=== PATIENT | female | born 1935 | race Caucasian/White ===

== ENCOUNTER → 2016-08-18 | Outpatient (CLI) | payer MEDICARE ==
--- NOTE | 2016-08-18 11:19 | MM ---
Reason for exam: clinical finding. Last mammogram was performed 11 months ago. History: Patient is postmenopausal. Family history of breast cancer in 2 maternal aunts. Taking unspecified hormones for 15 years beginning at age 56. Indicated problem(s): pain in both breasts. Physical Findings: Nurse did not find any significant physical abnormalities on exam. MG 3D Diag Mammo W/Cad DORINA Bilateral CC and MLO view(s) were taken. Prior study comparison: September 08, 2015, bilateral MG screening mammo w CAD. March 22, 2013, bilateral digital screening mammo w/CAD. February 09, 2012, bilateral digital screening mammo w/CAD. There are scattered fibroglandular densities. No significant new findings when compared with previous films. These results were verbally communicated with the patient and result sheet given to the patient on 08/18/16. ASSESSMENT: Benign, BI-RAD 2 RECOMMENDATION: Routine screening mammogram of both breasts in 1 year.
== END | disposition home or self-care (01) ==
LOC: RADMAMWWP 09:56
PROVIDERS: ATTEND Obstetrics & Gynecology
DX: N64.4 Mastodynia (principal)
CPT/HCPCS: G0204; G0279

== ENCOUNTER → 2017-08-03 | Outpatient (CLI) | payer MEDICARE ==
--- NOTE | 2017-08-03 16:21 | XR ---
EXAMINATION TYPE: XR Hip RT and AP Pelvis DATE OF EXAM: 08/03/2017 COMPARISON: NONE HISTORY: Right hip pain TECHNIQUE: A single AP view of the pelvis is obtained. Two views of the right hip are obtained. FINDINGS: There is no acute fracture/dislocation evident in the pelvis. The hip and sacroiliac join ts appear symmetric and unremarkable. The overlying soft tissue appears unremarkable. Two views of right hip show no acute fracture or dislocation. There is marked arthropathy change, sub chondral geode formation, joint space loss, marginal spurring, subchondral sclerosis and flattening o f the femoral head. Arthropathy changes are less pronounced in the left hip. Difficult to exclude fem oral acetabular impingement on the left. IMPRESSION: There is no acute fracture or dislocation in the pelvis or right hip. Osteoarthritis, th ere may have been prior osteochondral fracture, osteonecrosis with secondary osteoarthritis. Addition al findings above.
== END | disposition home or self-care (01) ==
LOC: RADXRMAIN 13:50
PROVIDERS: ATTEND Physician Assistant
DX: M16.11 Unilateral primary osteoarthritis, right hip (principal)
CPT/HCPCS: 73502

== ENCOUNTER → 2017-08-26 | Outpatient (CLI) | payer MEDICARE ==
[2017-08-26 14:23] LABS: Basophils # (A) 0.1 k/uL (0-0.2); Basophils % (A) 1 %; Eosinophils # (A) 0.3 k/uL (0-0.7); Eosinophils % (A) 3 %; HCT 37.1 % (34.0-46.0); HGB 12.4 gm/dL (11.4-16.0); Lymphocytes # (A) 1.7 k/uL (1.0-4.8); Lymphocytes % (A) 17 %; MCH 29.6 pg (25.0-35.0); MCHC 33.4 g/dL (31.0-37.0); MCV 88.8 fL (80.0-100.0); Mean Platelet Volume 7.1; Monocytes # (A) 0.4 k/uL (0-1.0); Monocytes % (A) 5 %; Neutrophils % (A) 72 %; Platelet Count 348 k/uL (150-450); RBC 4.18 m/uL (3.80-5.40); RDW 13.1 % (11.5-15.5); WBC 9.6 k/uL (3.8-10.6)
[2017-08-26 14:25] LABS: Appearance,Urine Clear (Clear); Bilirubin,Urine Negative (Negative); Blood,Urine Negative (Negative); Color,Urine Yellow; Glucose,Urine (UA) Negative (Negative); Ketones,Urine Negative (Negative); Leukocyte Esterase,Urine Small (Negative); Mucus,Urine Few /hpf; Nitrite,Urine Negative (Negative); Protein,Urine Negative (Negative); Squamous Epithelial Cell,Urine 3 /hpf (0-4); Urobilinogen,Urine <2.0 mg/dL (<2.0); WBC,Urine 3 /hpf (0-5)
[2017-08-26 14:30] LABS: Partial Thromboplastin Time 22.6 sec (22.0-30.0); Prothrombin Time 9.9 sec (9.0-12.0)
[2017-08-26 14:49] LABS: Potassium 4.7 mmol/L (3.5-5.1)
== END | disposition home or self-care (01) ==
LOC: LABPAT 13:40
PROVIDERS: ATTEND Orthopaedic Surgery
DX: Z01.812 Encounter for preprocedural laboratory examination (principal); M16.11 Unilateral primary osteoarthritis, right hip; Z79.01 Long term (current) use of anticoagulants
CPT/HCPCS: 36415; 80051; 81001; 82565; 84520; 85025; 85610; 85730; 87070

== ENCOUNTER 2017-09-05 08:04 | Inpatient (IN) | payer MEDICARE ==
[2017-08-25 13:18] VITALS: BMI 23.2
--- NOTE | 2017-09-04 12:52 | HP ---
HISTORY AND PHYSICAL Surgery is scheduled for 09/05/2017. Sabrina Santizo is an 82-year-old patient seen with symptomatic right hip osteoarthritis. After having treatment options discussed, she elected to proceed with direct anterior right total hip arthroplasty. Consent regarding the procedure was obtained. Medical clearance was provided by Dr. Rajinder Travis. PAST MEDICAL HISTORY: Hypothyroidism, hypertension. PAST SURGICAL HISTORY: Right knee arthroscopy, right total knee arthroplasty, tonsillectomy. DAILY MEDICATIONS: Synthroid, , aspirin, Aleve. ALLERGIES: None reported. SOCIAL HISTORY: Patient denies tobacco use. PHYSICAL EVALUATION OF THE RIGHT HIP: There is diffuse tenderness. Limited range of motion with severe pain. Positive impingement sign. Right lower extremity is 1 inch shorter than the left. Straight leg raise is negative. Distal neurovascular exam is intact. RADIOGRAPHS: Radiographs of the right hip revealed severe osteoarthritis. IMPRESSION: 1. Right hip osteoarthritis. 2. Hypertension. 3. Hypothyroidism. PLAN: Direct anterior right total hip arthroplasty. MMODL / IJN: [id number] /
[~2017-09-05 08:04] MED LIST: ACETAMINOPHEN TAB 500 MG TAB PO ONE; DEXAMETHASONE SOD PHOSPHATE 10 MG/ML 1 ML VIAL IV ONE; MELOXICAM 7.5 MG TAB PO ONE; MIDAZOLAM 2 MG/2 ML VIAL IV PRN; ONDANSETRON 4 MG/2 ML VIAL IVP ONE; TRANEXAMIC ACID 1,000 MG in SODIUM CHLORIDE 0.9% 50 ML IVPB ONE; ceFAZolin IN SWFI 2 GM/20 ML SYRINGE IVP ONE; fentaNYL (PF) 50 MCG/ML 2 ML AMP IV PRN
[2017-09-05] MEDS ORDERED: LIDOCAINE 1% INJ 10MG/ML (20 ML MDV) ONE ×2 (09:07→10:00)
[2017-09-05] MEDS: LACTATED RINGERS 1,000 ML IV SCH (09:21)
[2017-09-05 09:30] VITALS: RESP 16
[2017-09-05] MEDS ORDERED: ROPIVACAINE 246.25 MG, EPINEPHrine 0.5 MG, KETOROLAC 30 MG, cloNIDine HCL/PF 80 MCG, WA... MISCELLANE ONE ×5 (09:39)
[2017-09-05] MEDS ORDERED: SODIUM CHLORIDE 0.9% 100 ML BAG ONE (10:00)
[2017-09-05] MEDS ORDERED: PROPOFOL 10 MG/ML 20 ML VIAL IV ONE (10:00)
[2017-09-05] MEDS ORDERED: TRANEXAMIC ACID 1,000 MG/10 ML VIAL ONE (10:00)
[2017-09-05] MEDS ORDERED: MIDAZOLAM 2 MG/2 ML VIAL ONE (10:00)
[2017-09-05] MEDS ORDERED: fentaNYL (PF) 50 MCG/ML 2 ML AMP ONE (10:00)
[2017-09-05] MEDS ORDERED: LACTATED RINGERS 1,000 ML IV ONE (11:41)
--- NOTE | 2017-09-05 11:47 | P.OP ---
Date of Procedure: 09/05/17 Preoperative Diagnosis: Right hip osteoarthritis Postoperative Diagnosis: Right hip osteoarthritis Procedure(s) Performed: Direct anterior right total hip arthroplasty Implants: 1. Depuy Corail press-fit femoral stem KA size 11 standard collar 2. Depuy Anna 56 mm press-fit acetabular shell 3. Depuy pinnacle polyethylene acetabular liner neutral 36 mm ID 56 mm OD 4. Biolox delta ceramic femoral head +5 36 mm Anesthesia: regional (Regional block), local, spinal Surgeon: Jovan Bangura [employer] Flight Attendant #1: Jayy Best Estimated Blood Loss (ml): 200 Pathology: other (Femoral head) Condition: stable Disposition: PACU Indications for Procedure: 82-year-old patient seen with symptomatic right hip osteoarthritis. After treatment options were discussed, she elected to proceed with total hip arthroplasty. Operative Findings: see description of procedure Description of Procedure: The patient was taken to the operative suite after having a regional block performed by the department of anesthesia. Patient underwent a spinal anesthetic by the department of anesthesia. Patient was then transferred to the [employer] table. Patient was given preoperative IV antibiotics and TXA. Both lower extremities were placed in standard leg spars. The hip was then prepped and draped in the normal sterile orthopedic fashion. A standard anterior incision was made beginning 3 cm lateral and 1 cm distal to the ASIS extending 10 cm. Dissection was then carried down through the subcutaneous soft tissues down to the fascia overlying the tensor fascia dale. An incision was now made through the fascia. Careful dissection was taken down exposing the tensor fascia dale muscle. A Cobra retractor was now placed along the medial femoral neck and a second one along the lateral femoral neck. The venous circumflex vessels were now identified, cauterized and clipped. We identified the anterior hip capsule. An incision was made through the hip capsule along the lateral border. Tag sutures were then placed along the anterior capsule and lateral capsule. We then performed a capsulotomy. Retractors were now placed around the femoral neck itself. A Cobra retractor was now placed along the anterior acetabulum. Good exposure was now noted of the femoral head/neck complex. Residual labrum was debrided out. We placed the extremity into 3 turns of fine traction. We were then able to introduce a skid in between the femoral head and acetabulum. A placed a awl into the femoral head. We took 2 turns of traction off the extremity. Rotation was now released. The femoral head was then dislocated without difficulty. Additional releasing was performed of the capsule. The head was then reduced. All traction was released. A femoral neck cut was now made with a sagittal saw. It was completed with an osteotome at the lateral neck area. The femoral head was now removed without difficulty. It was advanced arthritis of both the femoral head and acetabulum. The acetabulum appeared very shallow. The extremity was now rotated to 60 of external rotation. It was locked in position. Residual labrum was now debrided out. Serial reaming was performed of the acetabulum. Once we reached the appropriate size and a trial was position and fit nicely. The trial components were removed. The wound was irrigated with pulse lavage mechanical irrigation. The appropriate size was now chosen opened and made available. It was introduced into the acetabulum without difficulty. The C-arm /fluoroscopy was now brought into the operative field. We made sure we had a true AP pelvic view. We now under direct C-arm/fluoroscopy introduced into the acetabular component with appropriate version and inclination. It was well seated and stable. The C-arm was pulled back. An appropriate liner was introduced and clicked into position. It was felt to be stable. At this point retractors were removed. The extremity was now placed into 120 external rotation with no traction. The leg was now dropped to the ground and adducted. Appropriate retractors were now positioned along the proximal femur. We also placed our femoral look into position. Additional capsular releasing was performed to gain access to the proximal femur. We now used a box osteotome. A canal finder was now utilized. Serial broaching was now performed until we reached the appropriate size with good overall rotational stability. Appropriate calcar planing was performed. A trial head/neck was placed into position. The hip was now reduced. The C-arm/fluoroscopy was brought back into the operative field. A spot film was obtained of the nonoperative hip. A spot film was obtained of the trial components. Overlays were performed, we noted good overall alignment and positioning for determining leg length. The C- arm/fluoroscopy was pulled back. Retractors were repositioned and the hip was dislocated. The leg was again taken down to the ground and adducted. Appropriate retractors were repositioned as well as the femoral hook. All trial components were removed. The deep soft tissues were infiltrated with local analgesic. The wound was irrigated with pulse lavage mechanical irrigation. The femoral implant was opened along with the femoral head. The femoral implant was introduced with good purchase and fixation noted. The femoral head was introduced with good positioning and fixation noted. Retractors were now removed. The hip was now reduced. There appeared be good positioning of the hip. This was confirmed under fluoroscopy and spot films were obtained to document that. Bipolar cautery had been utilized intermittently through the procedure for hemostasis. The superficial soft tissues were infiltrated with local analgesic. The wound was irrigated copiously with pulse lavage mechanical irrigation. The fascia was repaired with Vicryl suture. The subcutaneous soft tissues were repaired in layers with Vicryl suture. The skin was approximated with pernio/Dermabond. A second gram of TXA was given. Sterile dressings were applied. Patient was then awakened, transferred to a bed and taken to recovery in stable condition. Domingo CLAYTON assisted with the procedure.
[2017-09-05] MEDS ORDERED: MORPHINE SULFATE 4MG/4ML SYRG IVP PRN ×3 (11:48)
[2017-09-05] MEDS ORDERED: NALOXONE 0.4 MG/ML 1 ML VIAL IV PRN (11:48)
[2017-09-05] MEDS ORDERED: ONDANSETRON 4 MG/2 ML VIAL IVP PRN (11:48)
[2017-09-05] MEDS ORDERED: HYDROcodone/APAP 5-325MG 1 EACH TAB PO PRN (11:48)
--- NOTE | 2017-09-05 11:50 | P.ONQ ---
Anesthesiology Proc Note - PNB - Peripheral Nerve Block Performed Right Fascia Iliaca Single Time Out Performed: Yes Procedure Start Time: :10 Procedure Stop Time: : Indication: Acute Post-Operative Pain, Requested by physician Sedation Type: Sedate with meaningful contact maintained Preparation: Sterile Prep Position: Supine Needle Size: 50mm (2") Needle Gauge: 21 Technique: Ultrasound Injectate: 0.5% Ropivacaine (see comment for volume) (marcaine .25% 40cc) Blood Aspirated: No Pain Paresthesia on Injection Noted: No Resistance on Injection: Normal Events: Uneventful and Well Tolerated
--- NOTE | 2017-09-05 11:53 | XR ---
EXAMINATION TYPE: XR Hip Limited RT DATE OF EXAM: 09/05/2017 COMPARISON: NONE HISTORY: Postop TECHNIQUE: One view submitted. FINDINGS: There is a prosthetic hip in near anatomic alignment. There is soft tissue edema and emphysema. IMPRESSION: 1. Postoperative change. Appears in near-anatomic alignment.
--- NOTE | 2017-09-05 11:54 | FL ---
EXAMINATION TYPE: FL guidance operating room DATE OF EXAM: 09/05/2017 HISTORY: Flouroscopy time 27 seconds of fluoroscopy provided. IMPRESSION: 1. Fluoroscopy time.
[2017-09-05] MEDS: traMADol 50 MG TAB PO SCH ×3 (16:41→21:41)
[2017-09-05] MEDS: ceFAZolin IN SWFI 2 GM/20 ML SYRINGE IVP SCH (16:51)
[2017-09-05] MEDS: SODIUM CHLORIDE 0.9% 1,000 ML IV SCH (16:52)
[2017-09-05] MEDS ORDERED: ARTIFICIAL TEARS-HYPROMELLOSE DROPS 15 ML BTL BOTH EYES PRN (19:18)
--- NOTE | 2017-09-05 19:31 | P.CONS ---
History of Present Illness - Reason for Consult Preoperative consultation management. - History of Present Illness 82-year-old female with no significant medical problems is admitted for hip arthroplasty sepsis and underwent surgery denied any fever, chills, nausea, vomiting patient doesn't have any Caceres catheter at this time patient is feeling well. No pain in the right hip area Review of Systems REVIEW OF SYSTEMS: CONSTITUTIONAL: No fever, no malaise, no fatigue. HEENT: No recent visual problems or hearing problems. Denied any sore throat. CARDIOVASCULAR: No chest pain, orthopnea, PND, no palpitations, no syncope. PULMONARY: No shortness of breath, no cough, no hemoptysis. GASTROINTESTINAL: No diarrhea, no nausea, no vomiting, no abdominal pain. Normoactive bowel sounds. NEUROLOGICAL: No headaches, no weakness, no numbness. HEMATOLOGICAL: Denies any bleeding or petechiae. GENITOURINARY: Denies any burning micturition, frequency, or urgency. MUSCULOSKELETAL/RHEUMATOLOGICAL: Denies any joint pain, swelling, or any muscle pain. ENDOCRINE: Denies any polyuria or polydipsia. The rest of the 14-point review of systems is negative. 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 Past Anesthesia/Blood Transfusion Reactions: Previous Problems w/ Anesthesia, Family History of Problems w/ Anesthesia Additional Past Anesthesia/Blood Transfusion Reaction / Comm: "i did not go to sleep right away with cataract procedure", brother was awake during a surgery Past Psychological History: No Psychological Hx Reported Smoking Status: Former smoker Past Alcohol Use History: None Reported Additional Past Alcohol Use History / Comment(s): quit smoking ,smoked approx 8 yrs,<1ppd Past Drug Use History: None Reported - Past Family History Mother Family Medical History: No Reported History Medications and Allergies Home Medications Medication Instructions Recorded Confirmed Type Aspirin 81 mg PO HS 12/11/13 09/05/17 History Naproxen Sodium [Aleve] 220 - 440 mg PO BID PRN 08/25/17 09/05/17 History Vit C/E/Zn/Coppr/Lutein/Zeaxan 1 cap PO DAILY 08/25/17 09/05/17 History [Preservision Areds 2 Softgel] Levothyroxine Sodium [Synthroid] 100 mcg PO DAILY 09/05/17 09/05/17 History Allergies Allergy/AdvReac Type Severity Reaction Status Date / Time Sulfa (Sulfonamide Allergy Rash/Hives Verified 09/05/17 16:53 Antibiotics) Physical Exam Vitals: Vital Signs Temp Pulse Resp BP Pulse Ox 09/05/17 15:00 76 16 116/58 95 09/05/17 14:45 79 16 118/59 97 09/05/17 14:30 77 16 118/56 96 09/05/17 14:15 81 16 131/60 97 09/05/17 14:00 76 16 128/63 95 09/05/17 13:45 74 16 131/63 98 09/05/17 13:30 78 16 128/65 95 09/05/17 13:15 83 16 113/75 94 L 09/05/17 13:00 98.1 F 91 16 134/63 94 L 09/05/17 12:45 67 16 122/61 98 09/05/17 12:30 66 16 129/66 98 09/05/17 12:15 68 16 137/67 98 09/05/17 12:08 98 F 67 16 103/60 98 09/05/17 09:30 67 16 128/62 100 09/05/17 09:00 97.7 F 75 16 127/64 98 Intake and Output 09/05/17 09/05/17 09/05/17 06:59 14:59 22:59 Intake Total 1400 Output Total 200 200 Balance 1200 -200 Intake: IV 1400 Sodium Chloride 0.9% 1, 300 000 ml @ 50 mls/hr IV . Q20H [facility] Rx#:[id number] Output: Urine 200 Estimated Blood Loss 200 PHYSICAL EXAMINATION: GENERAL: The patient is alert and oriented x3, not in any acute distress. Well developed, well nourished. HEENT: Pupils are round and equally reacting to light. EOMI. No scleral icterus. No conjunctival pallor. Normocephalic, atraumatic. No pharyngeal erythema. No thyromegaly. CARDIOVASCULAR: S1 and S2 present. No murmurs, rubs, or gallops. PULMONARY: Chest is clear to auscultation, no wheezing or crackles. ABDOMEN: Soft, nontender, nondistended, normoactive bowel sounds. No palpable organomegaly. MUSCULOSKELETAL: Deferred to orthopedic surgery EXTREMITIES: No cyanosis, clubbing, or pedal edema. NEUROLOGICAL: Gross neurological examination did not reveal any focal deficits. SKIN: No rashes. Assessment and Plan Plan: Left hip arthroplasty postoperative day 0: Due to prophylaxis pain management as per primary service. Try to avoid opiates benzodiazepines barbiturates to avoid delirium. -Hypothyroidism continue with levothyroxine
[2017-09-05] MEDS: FAMOTIDINE 20 MG TAB PO SCH (21:41)
[2017-09-05] MEDS: ASPIRIN 81 MG PO SCH (21:41)
[2017-09-05] MEDS: SENNOSIDES-DOCUSATE SODIUM 1 EACH TAB PO SCH (21:42)
[2017-09-05] MEDS: HYDROcodone/APAP 5-325MG 1 EACH TAB PO PRN (23:25)
[2017-09-06] MEDS: ceFAZolin IN SWFI 2 GM/20 ML SYRINGE IVP SCH (03:28)
[2017-09-06] MEDS ORDERED: HYDROmorphone 2 MG TAB PO PRN ×3 (03:57→03:58)
[2017-09-06] MEDS: LEVOTHYROXINE 100 MCG TAB PO SCH (05:42)
[2017-09-06] MEDS: LACTATED RINGERS 1,000 ML IV SCH (05:55)
[2017-09-06] MEDS: traMADol 50 MG TAB PO SCH ×4 (07:58→21:06)
[2017-09-06] MEDS: ENOXAPARIN 40 MG/0.4 ML SYRINGE SQ SCH (07:59)
[2017-09-06] MEDS: FAMOTIDINE 20 MG TAB PO SCH ×2 (07:59→21:06)
[2017-09-06] MEDS: MELOXICAM 7.5 MG TAB PO SCH (07:59)
[2017-09-06 08:02] LABS: Basophils % (A) 0 %; Eosinophils # (A) 0.1 k/uL (0-0.7); Eosinophils % (A) 1 %; HCT 26.2 % (34.0-46.0); Lymphocytes # (A) 1.7 k/uL (1.0-4.8); Lymphocytes % (A) 25 %; MCH 29.4 pg (25.0-35.0); MCHC 32.7 g/dL (31.0-37.0); MCV 90.1 fL (80.0-100.0); Mean Platelet Volume 7.6; Monocytes # (A) 0.5 k/uL (0-1.0); Monocytes % (A) 8 %; Neutrophils # (A) 4.6 k/uL (1.3-7.7); Neutrophils % (A) 66 %; Platelet Count 217 k/uL (150-450); RDW 13.7 % (11.5-15.5); WBC 7.1 k/uL (3.8-10.6)
[2017-09-06 08:03] LABS: HGB 8.5 gm/dL (11.4-16.0)
[2017-09-06] MEDS: HYDROcodone/APAP 5-325MG 1 EACH TAB PO PRN ×2 (08:57→23:35)
[2017-09-06] MEDS ORDERED: FAMOTIDINE 20 MG TAB PO SCH (09:00)
--- NOTE | 2017-09-06 10:57 | P.PN ---
Subjective Progress Note Date: 09/06/17 Principal diagnosis: s/p right layo Patient is seen today resting in her hospital chair, she appears comfortable. She is ambulating well with physical therapy. She has urinated on her own. She denies any headaches, lightheadedness, chest pain or shortness of breath. Objective - Vital Signs Vital signs: Vital Signs Temp 98.8 F 09/06/17 07:00 Pulse 76 09/06/17 07:00 Resp 16 09/06/17 07:00 BP 107/64 09/06/17 07:00 Pulse Ox 97 09/06/17 07:00 Intake & Output 09/05/17 09/06/17 09/06/17 18:59 06:59 18:59 Intake Total 1400 1025 180 Output Total 400 Balance 1000 1025 180 Intake: IV 1400 175 Sodium Chloride 0.9% 1, 300 175 000 ml @ 50 mls/hr IV . Q20H [facility] Rx#:[id number] Intake, IV Titration 350 Amount Sodium Chloride 0.9% 1, 350 000 ml @ 50 mls/hr IV . Q20H [facility] Rx#:[id number] Oral 500 180 Output: Urine 200 Estimated Blood Loss 200 Other: Voiding Method Toilet # Voids 1 - Exam Right lower extremity: Incision is clean, dry, and intact. The prineo tape is in good condition. There is minimal soft tissue swelling and ecchymosis surrounding the medial and lateral aspects of the incision. Calf is soft, no tenderness with palpation. Plantar flexion, dorsiflexion, EHL, FHL are intact. Sensory exam to light touch throughout the extremity is intact, dorsal pedis pulses 2+. - Labs CBC & Chem 7: 09/06/17 06:57 Labs: Abnormal Lab Results - Last 24 Hours (Table) 09/06/17 Range/Units 06:57 RBC 2.90 L (3.80-5.40) m/uL Hgb 8.5 L D (11.4-16.0) gm/dL Hct 26.2 L (34.0-46.0) % Assessment and Plan Plan: Assessment: 1. Post op day #1 s/p right layo Plan: 1. Pain control, continue use of low-dose medication 2. Continue work with physical therapy 3. Daily dressing changes/ice and elevate 4. GI and DVT prophylaxis, continue subcu medication 5. Medical recommendations 6. Will check CBC tomorrow morning, no worsening of hemoglobin she'll be discharged home today Time with Patient: Less than 30
[2017-09-06] MEDS: SODIUM CHLORIDE 0.9% 1,000 ML IV SCH (14:23)
[2017-09-06] MEDS: SENNOSIDES-DOCUSATE SODIUM 1 EACH TAB PO SCH (21:06)
[2017-09-06] MEDS: ASPIRIN 81 MG PO SCH (21:06)
[2017-09-07] MEDS: LEVOTHYROXINE 100 MCG TAB PO SCH (05:32)
[2017-09-07] MEDS: SODIUM CHLORIDE 0.9% 1,000 ML IV SCH (05:34)
[2017-09-07] MEDS: LACTATED RINGERS 1,000 ML IV SCH (05:35)
[2017-09-07] MEDS: ENOXAPARIN 40 MG/0.4 ML SYRINGE SQ SCH (07:21)
[2017-09-07] MEDS: MELOXICAM 7.5 MG TAB PO SCH (07:21)
[2017-09-07] MEDS: FAMOTIDINE 20 MG TAB PO SCH (07:21)
[2017-09-07] MEDS: traMADol 50 MG TAB PO SCH ×2 (07:22→12:51)
[2017-09-07 08:55] LABS: HCT 27.7 % (34.0-46.0); MCHC 32.3 g/dL (31.0-37.0); MCV 89.9 fL (80.0-100.0); Mean Platelet Volume 7.8; Platelet Count 219 k/uL (150-450); RBC 3.08 m/uL (3.80-5.40); RDW 13.9 % (11.5-15.5); WBC 8.2 k/uL (3.8-10.6)
--- NOTE | 2017-09-07 11:16 | P.PN ---
Subjective Progress Note Date: 09/07/17 Principal diagnosis: s/p right layo Patient is seen today resting in her hospital chair, she appears comfortable. She is ambulating well with physical therapy. She denies any headaches, lightheadedness, chest pain or shortness of breath. Objective - Vital Signs Vital signs: Vital Signs Temp 98.3 F 09/07/17 07:00 Pulse 87 09/07/17 07:00 Resp 16 09/07/17 01:10 BP 122/71 09/07/17 07:00 Pulse Ox 97 09/07/17 07:00 Intake & Output 09/06/17 09/07/17 09/07/17 18:59 06:59 18:59 Intake Total 400 300 Balance 400 300 Intake: Oral 400 300 Other: Voiding Method Toilet Toilet Toilet # Voids 2 3 - Exam Right lower extremity: Incision is clean, dry, and intact. The prineo tape is in good condition. There is minimal soft tissue swelling and ecchymosis surrounding the medial and lateral aspects of the incision. Calf is soft, no tenderness with palpation. Plantar flexion, dorsiflexion, EHL, FHL are intact. Sensory exam to light touch throughout the extremity is intact, dorsal pedis pulses 2+. - Labs CBC & Chem 7: 09/07/17 08:30 Labs: Abnormal Lab Results - Last 24 Hours (Table) 09/07/17 Range/Units 08:30 RBC 3.08 L (3.80-5.40) m/uL Hgb 9.0 L (11.4-16.0) gm/dL Hct 27.7 L (34.0-46.0) % Assessment and Plan Plan: Assessment: 1. Post op day #2 s/p right layo Plan: 1. Pain control, continue use of low-dose medication 2. Continue work with physical therapy 3. Daily dressing changes/ice and elevate 4. GI and DVT prophylaxis, discharged home on aspirin 325 mg twice a day 5. Medical recommendations 6. Discharge planning: Patient will be discharged home today Time with Patient: Less than 30
--- NOTE | 2017-09-07 11:20 | P.DS ---
Providers Date of admission: 09/05/17 08:04 Expected date of discharge: 09/07/17 Attending physician: Jovan Bangura Consults: 09/05/17 11:48 Consult Physician Routine Consulting Provider: Dago Jeter Consult Reason/Comments: Medical management Do you want consulting provider notified?: Yes Primary care physician: Rajinder [facility] Course: Date of admission: 09/05/2017 Date of discharge: 09/07/2017 Admission diagnosis: Status post right total hip arthroplasty Discharge diagnosis: Same Attending physician: Dr. Bangura Surgical procedures: Right total hip arthroplasty Brief history: Patient is a 82-year-old female with a history of progressive primary right hip osteoarthritis. At this point patient has failed conservative treatment measures and has opted to proceed with a elective right total hip arthroplasty. Hospital course: Details of patient's surgery can be found in operative report. Patient tolerated the procedure well and was subsequently transported to orthopedic floor. Patient's orthopeidc and medical care was provided daily. Patient had daily laboratory tests performed for evaluation of overall blood counts. Patient had daily physical therapy to include strengthening range of motion as well as education with walker ambulation. Patient was treated with Lovenox for their postoperative DVT prophylaxis during their inpatient stay. Patient was noted to have a relatively uneventful postoperative course. Patient reported satisfactory pain control with oral pain medications by postoperative day 0. Patient showed satisfactory progress with physical therapy. Patient moved steadily through the program and had no difficulty meeting the goals by postoperative day 1. Given patient's otherwise satisfactory course and having met physical therapy goals, plan is to discharge patient home on postoperative day 2. Discharge condition/disposition: Patient will be discharged home in stable condition. Discharge medications: Instructions are given on resumption of patient's normal daily medications per primary care recommendation, in addition patient will be prescribed [place] 5 mg/325 mg, tramadol 50 mg, Colace 100 mg, Pepcid 20 mg, aspirin 325 mg. Discharge instructions: 1. Wound care and infection precautions, keep incision dry and covered while showering, no lotions, creams, moisturizers. No soaking, tubs, pools, hottubs. Do not scrub over the incision. 2. Weight-bear as tolerated with walker / cane until follow-up. 3. Ice and elevate when necessary. Do not exceed 20 minutes per hour with ice pack. 4. Utilize compression sleeve until seen at first follow up appointment. 5. Visiting nursing care. 6. Home physical therapy. 7. Pain meds and anticoagulants per prescription. 8. Pain medication has potential to cause constipation. Increase oral fluid and fiber intake. Contact primary care provider if you have not had a bowel movement within 48 hours after discharge 9. No anti-inflammatory medication until discussed at first post operative visit, this including Motrin, Aleve, Mobic, Diclofenac. 10. Follow up in office at 2 weeks postop with Domingo Best PA-C 11. Follow up with your primary care doctor 7-10 days after discharge. 12. Contact [facility] with any questions, . Procedures: Right total hip arthroplasty Patient Condition at Discharge: Good Plan - Discharge Summary Discharge Rx Participant: Yes New Discharge Prescriptions: New Aspirin 325 mg PO BID #60 tab Docusate [Colace] 100 mg PO DAILY #30 capsule Famotidine [Pepcid] 20 mg PO DAILY #30 tablet Hydrocodone/Acetaminophen [[place] 5-325] 1 each PO Q6HR PRN #40 tab PRN Reason: Pain traMADol HCl [Ultram] 50 mg PO Q6H PRN #30 tab PRN Reason: Pain Continue Vit C/E/Zn/Coppr/Lutein/Zeaxan [Preservision Areds 2 Softgel] 1 cap PO DAILY Levothyroxine Sodium [Synthroid] 100 mcg PO DAILY Discharge Medication List Vit C/E/Zn/Coppr/Lutein/Zeaxan [Preservision Areds 2 Softgel] 1 cap PO DAILY [History] Levothyroxine Sodium [Synthroid] 100 mcg PO DAILY 09/05/17 [History] Aspirin 325 mg PO BID #60 tab 09/07/17 [Rx] Docusate [Colace] 100 mg PO DAILY #30 capsule 09/07/17 [Rx] Famotidine [Pepcid] 20 mg PO DAILY #30 tablet 09/07/17 [Rx] Hydrocodone/Acetaminophen [[place] 5-325] 1 each PO Q6HR PRN #40 tab 09/07/17 [Rx] traMADol HCl [Ultram] 50 mg PO Q6H PRN #30 tab 09/07/17 [Rx] Follow up Appointment(s)/Referral(s): [facility], [NON-STAFF] - Jayy Best PAC [PHYSICIAN CAR PARK ATTENDANT] - 09/21/17 1:50 pm Rajinder Travis MD [Primary Care Provider] - 09/13/17 1:00 pm Patient Instructions/Handouts: Anterior Hip Replacement (DC) Activity/Diet/Wound Care/Special Instructions: Orthopedic Discharge Instructions: 1. Wound care and infection precautions, keep incision dry and covered while showering, no lotions, creams, moisturizers. No soaking, pools, hot tubs. Do not scrub over incision. 2. Weight-bear as tolerated with walker / cane until follow-up. 3. Ice and elevate when necessary. Do not exceed 20 minutes per hour with ice pack. 4. Utilize compression sleeve until seen at first follow up appointment. 5. Visiting nursing care. 6. Home physical therapy. 7. Pain meds and anticoagulants per prescription. 8. Pain medication has potential to cause constipation. Increase oral fluid and fiber intake. Contact primary care provider if you have not had a bowel movement within 48 hours after discharge. 9. No anti-inflammatory medication until discussed at first post operative visit, this including Motrin, Aleve, Mobic, Diclofenac. 10. Follow up in office at 2 weeks postop with Domingo Best PA-C 11. Follow up with your primary care doctor 7-10 days after discharge. 12. Contact [facility] with any questions, . Discharge Disposition: HOME WITH HOME HEALTH SERVICES
[2017-09-07 16:13] VITALS: BP 110/57; PULSE 84; TEMP 98.8
== END 2017-09-07 16:21 | disposition home health service (06) | DRG 470 ==
LOC: 2ORMAIN 08:04 → 3SUR 12:08
PROVIDERS: ADMIT Orthopaedic Surgery; ATTEND Orthopaedic Surgery
PROC: 0SR904A Replacement of Right Hip Joint with Ceramic on Polyethylene Synthetic Substitute, Uncemented, Open Approach (ICD-10-PCS; principal; 2017-09-05 10:15)
DX: M16.11 Unilateral primary osteoarthritis, right hip (principal); E03.9 Hypothyroidism, unspecified; K21.9 Gastro-esophageal reflux disease without esophagitis; I10 Essential (primary) hypertension; H35.30 Unspecified macular degeneration; N32.81 Overactive bladder; G25.81 Restless legs syndrome; M54.30 Sciatica, unspecified side; N81.10 Cystocele, unspecified; Z79.1 Long term (current) use of non-steroidal anti-inflammatories (NSAID); Z79.82 Long term (current) use of aspirin; Z79.890 Hormone replacement therapy; Z79.899 Other long term (current) drug therapy; Z96.651 Presence of right artificial knee joint; Z87.440 Personal history of urinary (tract) infections; Z87.891 Personal history of nicotine dependence; Z98.42 Cataract extraction status, left eye; Z98.41 Cataract extraction status, right eye; Z88.2 Allergy status to sulfonamides; Z98.51 Tubal ligation status; Z80.49 Family history of malignant neoplasm of other genital organs; Z80.1 Family history of malignant neoplasm of trachea, bronchus and lung
CPT/HCPCS: 73501; 85025; 85027; 86850; 86900; 86901; 88300

== ENCOUNTER → 2018-04-29 | Outpatient (CLI) | payer MEDICARE ==
--- NOTE | 2018-05-01 10:50 | MM ---
Reason for exam: screening (asymptomatic). Last mammogram was performed 1 year and 8 months ago. History: Patient is postmenopausal. Family history of breast cancer in 2 maternal aunts. Taking unspecified hormones for 15 years beginning at age 56. Physical Findings: A clinical breast exam by your physician is recommended on an annual basis and results should be correlated with mammographic findings. MG 3D Screening Mammo W/Cad Bilateral CC and MLO view(s) were taken. Prior study comparison: August 18, 2016, bilateral MG 3d diag mammo w/cad [facility]. September 08, 2015, bilateral MG screening mammo w CAD. The breast tissue is heterogeneously dense. This may lower the sensitivity of mammography. No suspicious abnormality. No significant changes when compared with prior studies. ASSESSMENT: Negative, BI-RAD 1 RECOMMENDATION: Routine screening mammogram of both breasts in 1 year.
== END ==
LOC: RADMAMWWP 10:07
PROVIDERS: ATTEND Internal Medicine
DX: Z12.31 Encounter for screening mammogram for malignant neoplasm of breast (principal)
CPT/HCPCS: 77063; 77067

== ENCOUNTER → 2018-10-02 | Outpatient (CLI) | payer MEDICARE | END | disposition home or self-care (01) | LOC: LABWHC1 10:38 | PROVIDERS: ATTEND Orthopaedic Surgery | DX: Z01.812 Encounter for preprocedural laboratory examination (principal); M16.12 Unilateral primary osteoarthritis, left hip | CPT/HCPCS: 87070 ==

== ENCOUNTER → 2018-10-04 | Outpatient (CLI) | payer MEDICARE ==
[2018-10-04 15:41] LABS: Basophils # (A) 0.1 k/uL (0-0.2); Basophils % (A) 1 %; Eosinophils # (A) 0.4 k/uL (0-0.7); Eosinophils % (A) 5 %; HCT 36.9 % (34.0-46.0); HGB 11.9 gm/dL (11.4-16.0); Lymphocytes # (A) 1.4 k/uL (1.0-4.8); Lymphocytes % (A) 19 %; MCHC 32.4 g/dL (31.0-37.0); MCV 89.7 fL (80.0-100.0); Mean Platelet Volume 7.2; Monocytes # (A) 0.4 k/uL (0-1.0); Monocytes % (A) 6 %; Neutrophils % (A) 67 %; Platelet Count 305 k/uL (150-450); RBC 4.11 m/uL (3.80-5.40); RDW 13.2 % (11.5-15.5); WBC 7.5 k/uL (3.8-10.6)
[2018-10-04 15:46] LABS: Potassium 5.1 mmol/L (3.5-5.1)
[2018-10-04 15:50] LABS: INR 0.9 (<1.2)
== END | disposition home or self-care (01) ==
LOC: LABPAT 14:46
PROVIDERS: ATTEND Orthopaedic Surgery
DX: Z01.812 Encounter for preprocedural laboratory examination (principal); M16.12 Unilateral primary osteoarthritis, left hip
CPT/HCPCS: 80051; 85025; 85610

== ENCOUNTER 2018-10-09 10:00 | Inpatient (IN) | payer MEDICARE ==
[2018-10-29] MEDS ORDERED: MIDAZOLAM 2 MG/2 ML VIAL IV PRN (07:59)
[2018-10-29] MEDS ORDERED: fentaNYL (PF) 50 MCG/ML 2 ML AMP IV PRN (07:59)
[2018-10-29] MEDS ORDERED: LIDOCAINE 1% 20 ML VIAL (10MG/ML) FOR IV START INTRADERMA PRN (07:59)
--- NOTE | 2018-10-29 12:50 | HP ---
HISTORY AND PHYSICAL REASON FOR ADMISSION: Surgery is 10/30/2018 Sabrina Santizo is an 83-year-old patient seen with symptomatic left hip osteoarthritis. After treatment options were discussed with her, she elected to proceed with left total hip arthroplasty. Consent was obtained. Medical clearance was provided Dr. Travis's office. PAST MEDICAL HISTORY: Hypertension, hypothyroidism. PAST SURGICAL HISTORY: Right knee arthroscopy, tonsillectomy, right total hip arthroplasty. MEDICATIONS: Synthroid, aspirin, Aleve. ALLERGIES: None. SOCIAL HISTORY: She denies tobacco use. PHYSICAL EXAMINATION: Physical evaluation of the left hip: She has limited range of motion with severe pain, diffuse tenderness. Straight leg raise negative. Hip impingement is positive. Distal neurovascular exam is intact. RADIOGRAPHS: Left knee radiographs reveal severe osteoarthritic changes. IMPRESSION: 1. Left hip osteoarthritis. 2. Hypertension. 3. Hypothyroidism. PLAN: Direct anterior left total hip arthroplasty. Surgery 10/30/2018. MMODL / IJN: [id number] /
[2018-10-30] MEDS ORDERED: TRANEXAMIC ACID 1,000 MG in SODIUM CHLORIDE 0.9% 100 ML IVPB ONE ×4 (05:00)
[2018-10-30] MEDS ORDERED: ACETAMINOPHEN TAB 500 MG TAB PO ONE (05:00)
[2018-10-30] MEDS ORDERED: MELOXICAM 7.5 MG TAB PO ONE (05:00)
[2018-10-30] MEDS ORDERED: ceFAZolin IN SWFI 2 GM/20 ML SYRINGE IVP ONE (05:00)
[2018-10-30] MEDS: LACTATED RINGERS 1,000 ML IV SCH ×2 (08:54→17:12)
[2018-10-30] MEDS ORDERED: DEXAMETHASONE SOD PHOSPHATE 10 MG/ML 1 ML VIAL IV ONE (09:01)
[2018-10-30] MEDS ORDERED: ONDANSETRON 4 MG/2 ML VIAL IVP ONE (09:02)
[2018-10-30] MEDS ORDERED: ROPIVACAINE 246.25 MG, EPINEPHrine 0.5 MG, KETOROLAC 30 MG, cloNIDine HCL/PF 80 MCG, WA... MISCELLANE ONE ×5 (09:56)
[2018-10-30] MEDS ORDERED: MIDAZOLAM 2 MG/2 ML VIAL ONE (10:24)
[2018-10-30] MEDS ORDERED: SODIUM CHLORIDE 0.9% 100 ML BAG ONE (10:24)
[2018-10-30] MEDS ORDERED: TRANEXAMIC ACID 1,000 MG/10 ML VIAL ONE (10:24)
[2018-10-30] MEDS ORDERED: ceFAZolin 3,000 MG in SODIUM CHLORIDE 0.9% IRRIGATIO 3,000 ML IRRIGATION ONE (10:57)
[2018-10-30] MEDS ORDERED: LACTATED RINGERS 1,000 ML IV ONE (11:05)
--- NOTE | 2018-10-30 12:11 | P.OP ---
Date of Procedure: 10/30/18 Preoperative Diagnosis: Left hip osteoarthritis Postoperative Diagnosis: Left hip osteoarthritis Procedure(s) Performed: Direct anterior left total hip arthroplasty Implants: 1. Depuy Corail KA size 11 with collar press-fit femoral stem 2. Depuy pinnacle size 54 press-fit acetabular shell 3. Depuy pinnacle polyethylene acetabular liner 54 OD 36 ID 4. Biolox delta ceramic femoral head +1.5 36 Anesthesia: local, spinal Surgeon: Jovan Bangura Pipe Fitter Ammonia #1: Jayy Best Estimated Blood Loss (ml): 500 Pathology: other (Femoral head) Condition: stable Disposition: PACU Indications for Procedure: 83-year-old patient seen with symptomatic left hip osteoarthritis. After treatment options were discussed, she elected to proceed with total hip arthroplasty. Operative Findings: See description of procedure Description of Procedure: The patient was taken to the operative suite. Patient underwent a spinal anesthetic by the department of anesthesia. Patient was then transferred to the [place] table. Patient was given preoperative IV antibiotics and TXA. Both lower extremities were placed in standard leg spars. The hip was then prepped and draped in the normal sterile orthopedic fashion. A standard anterior incision was made beginning 3 cm lateral and 1 cm distal to the ASIS extending 10 cm. Dissection was then carried down through the subcutaneous soft tissues down to the fascia overlying the tensor fascia dale. An incision was now made through the fascia. Careful dissection was taken down exposing the tensor fascia dale muscle. A Cobra retractor was now placed along the medial femoral neck and a second one along the lateral femoral neck. The venous circumflex vessels were now identified, cauterized and clipped. We identified the anterior hip capsule. An incision was made through the hip capsule along the lateral border. I performed a partial anterior capsulectomy. Retractors were now placed around the femoral neck itself. A femoral neck cut was now made with a sagittal saw. It was completed with an osteotome at the lateral neck area. The femoral head was now removed without difficulty. The extremity was now rotated to 45 of external rotation. It was locked in position. Residual labrum was now debrided out. Serial reaming was performed of the acetabulum while Domingo CLAYTON assisted holding an anterior retractor for exposure. Once we reached the appropriate size and a trial was position and fit nicely. The appropriate size was now chosen opened and made available. It was introduced into the acetabulum without difficulty. The C-arm/fluoroscopy was now brought into the operative field. We made sure we had a true AP pelvic view. We now under direct C- arm/fluoroscopy introduced into the acetabular component with appropriate version and inclination. I held the cup in appropriate position well Domingo CLAYTON used a mallet to seat the acetabular component. I noted the component now to be well seated and stable. Acetabular cup introduce her was removed. The C-arm was pulled back. An appropriate liner was introduced and clicked into position. It was felt to be stable. At this point retractors were removed. The extremity was now placed into 130 external rotation with no traction. The leg was now dropped to the ground and adducted. Appropriate retractors were now positioned along the proximal femur. We also placed our femoral look into position. Additional capsular releasing was performed to gain access to the proximal femur. We now used a box osteotome. A canal finder was now utilized. Serial broaching was now performed with the assistance of Domingo CLAYTON tapping the broaches down with a mallet while held the broach in appropriate rotation and position. This was done until we reached the appropriate size with good overall rotational stability. Appropriate calcar planing was performed. A trial head/neck was placed into position. The hip was now reduced. The C-arm/fluoroscopy was brought back into the operative field. A spot film was obtained of the nonoperative hip. A spot film was obtained of the trial components. Overlays were performed, we noted good overall alignment and positioning for determining leg length. The C-arm/fluoroscopy was pulled back. Retractors were repositioned and the hip was dislocated. The leg was again taken down to the ground and adducted. Appropriate retractors were repositioned as well as the femoral hook. All trial components were removed. The femoral implant was opened along with the femoral head. The femoral implant was introduced on the appropriate handle into our pre-broached area. I held the component position well Domingo CLAYTON used a mallet to seat the femoral component. The femoral component was now noted to be well seated and stable.. The femoral head was introduced with good positioning and fixation noted. Retractors were now removed. The hip was now reduced. There appeared be good positioning of the hip confirmed on intraoperative fluoroscopy. Spot films were obtained to document this. A second gram of TXA was given. The deep and superficial soft tissues were infiltrated with local analgesic. Bipolar cautery had been utilized intermittently through the procedure for hemostasis. The wound was irrigated copiously with pulse lavage mechanical irrigation. The fascia was repaired with Vicryl suture. The subcutaneous soft tissues were repaired in layers with Vicryl suture. The skin was approximated with pernio/Dermabond. Sterile dressings were applied. Patient was then awakened, transferred to a bed and taken to recovery in stable condition. Domingo CLAYTON assisted with the complex procedure.
[2018-10-30] MEDS ORDERED: HYDROmorphone 0.5 MG/0.5 ML SYRINGE IVP PRN ×3 (12:12)
[2018-10-30] MEDS ORDERED: HYDROcodone/APAP 5-325MG 1 EACH TAB PO PRN (12:12)
[2018-10-30] MEDS ORDERED: traMADol 50 MG TAB PO PRN (12:12)
[2018-10-30] MEDS ORDERED: ONDANSETRON 4 MG/2 ML VIAL IVP PRN (12:12)
[2018-10-30] MEDS ORDERED: NALOXONE 0.4 MG/ML 1 ML VIAL IV PRN (12:12)
--- NOTE | 2018-10-30 13:18 | XR ---
Limited left hip HISTORY: Anterior hip replacement Single intraoperative C-arm image documents the procedure.
--- NOTE | 2018-10-30 13:19 | FL ---
Fluoroscopy HISTORY: Anterior hip replacement 10 seconds fluoroscopy time supplied to the referring clinician. 1 intraoperative C-arm images docum ent the procedure. See dictated report from orthopedic surgery.
[2018-10-30] MEDS: HYDROcodone/APAP 5-325MG 1 EACH TAB PO PRN ×2 (15:39→22:32)
[2018-10-30 17:25] VITALS: BMI 22.9
[2018-10-30] MEDS: SODIUM CHLORIDE 0.9% 1,000 ML IV SCH (17:35)
[2018-10-30] MEDS: ceFAZolin IN SWFI 2 GM/20 ML SYRINGE IVP SCH (17:43)
[2018-10-30] MEDS ORDERED: SENNOSIDES-DOCUSATE SODIUM 1 EACH TAB PO SCH (21:00)
[2018-10-31] MEDS: ceFAZolin IN SWFI 2 GM/20 ML SYRINGE IVP SCH (01:21)
[2018-10-31] MEDS ORDERED: LEVOTHYROXINE 88 MCG TAB PO SCH (06:30)
--- NOTE | 2018-10-31 07:05 | CONS ---
CONSULTATION DATE OF SERVICE: 10/30/2018 REASON FOR CONSULTATION: Medical management requested by Dr. Bangura. CONSULTATION: This is a very pleasant 83-year-old patient of Dr. Rajinder Travis whose chronic stable medical conditions include GERD, osteoarthritis, hypothyroid, sciatica, urinary incontinence, macular degeneration. The patient has undergone left total hip arthroplasty. Some pain is present. No nausea or vomiting. Did tolerate her supper. Lying in bed. Denies any cardiac history. Otherwise comfortable. REVIEW OF SYSTEMS: CONSTITUTIONAL: None. HEENT: None. RESPIRATORY: None. CARDIOVASCULAR: None. GASTROINTESTINAL: Heartburn. GENITOURINARY: Urinary incontinence. MUSCULOSKELETAL: Arthritic pain in many joints. DERMATOLOGICAL: None. HEMATOLOGIC: None. LYMPHATIC: None. PSYCHIATRY: None. NEUROLOGICAL: None. PAST MEDICAL HISTORY: GERD, osteoarthritis, hypothyroid, diverticulitis, sciatica, urinary incontinence, macular degeneration bilateral eyes. PAST SURGICAL HISTORY: Tonsillectomy, tubal ligation, bilateral cataracts, hole in the macula of the right eye repaired, right hip replacement. SOCIAL HISTORY: Does not smoke. No alcohol. Lives by herself. FAMILY HISTORY: Family history of cancer, type unknown. HOME MEDICATIONS: 1. Requip 0.5 mg q.h.s. 2. PreserVision Areds 2 Softgel 1 capsule p.o. daily. 3. Aleve 220 mg p.o. q.12 p.r.n. 4. Myrbetriq 50 mg p.o. daily. 5. Synthroid 88 mcg p.o. daily. 6. Tylenol 325 p.o. q.6 p.r.n. ALLERGIES: Allergy to SULFA. PHYSICAL EXAMINATION: On examination, temperature 97.6, pulse 69, respiration 18, blood pressure 108/61, pulse ox 96% on room air. GENERAL APPEARANCE: Average build, lying in bed, awake. EYES: Pupils equal. Conjunctivae normal. HEENT: External appearance of nose and ears normal. Oral cavity normal. NECK: JVD not raised. Mass not palpable. RESPIRATORY: Effort normal. LUNGS: Fair entry. CARDIOVASCULAR: First and second sounds normal. No edema. ABDOMEN: Soft, nontender. Liver and spleen not palpable. LYMPHATIC: No lymph nodes palpable of neck or axilla. PSYCHIATRY: Alert and oriented x3. Mood and affect normal. NEUROLOGICAL: Pupils equal. Cranial nerves grossly intact. Power and sensation grossly intact. MUSCULOSKELETAL: Evidence of osteoarthritis especially in the hands. Dressing over the left hip. INVESTIGATIONS: White count 7.5, hemoglobin 11.9. Potassium 5.1. ASSESSMENT: 1. Left total hip arthroplasty. 2. Primary osteoarthritis. 3. Hypothyroid. 4. Gastroesophageal reflux disease. 5. Chronic sciatica. 6. Chronic urinary incontinence. PLAN: Home medications are resumed. Patient did get some IV fluids. The patient is getting Lovenox for DVT prophylaxis. Care was discussed with the patient. Questions were answered. Thank you Dr. Bangura. MMODL / IJN: [id number] /
[2018-10-31] MEDS: HYDROcodone/APAP 5-325MG 1 EACH TAB PO PRN (07:11)
[2018-10-31 08:19] LABS: Basophils # (A) 0.1 k/uL (0-0.2); Basophils % (A) 1 %; Eosinophils # (A) 0.1 k/uL (0-0.7); Eosinophils % (A) 1 %; HCT 26.3 % (34.0-46.0); Hypochromasia Slight; Lymphocytes # (A) 1.4 k/uL (1.0-4.8); Lymphocytes % (A) 15 %; MCH 28.7 pg (25.0-35.0); MCHC 31.7 g/dL (31.0-37.0); MCV 90.5 fL (80.0-100.0); Mean Platelet Volume 7.5; Monocytes # (A) 0.6 k/uL (0-1.0); Monocytes % (A) 6 %; Neutrophils # (A) 7.3 k/uL (1.3-7.7); Neutrophils % (A) 77 %; Platelet Count 210 k/uL (150-450); RBC 2.91 m/uL (3.80-5.40); RDW 13.5 % (11.5-15.5); WBC 9.6 k/uL (3.8-10.6)
[2018-10-31 08:21] LABS: HGB 8.4 gm/dL (11.4-16.0)
[2018-10-31 08:51] VITALS: BP 102/59; PULSE 78; RESP 16; TEMP 97.4
[2018-10-31] MEDS ORDERED: ENOXAPARIN 40 MG/0.4 ML SYRINGE SQ SCH (09:00)
[2018-10-31] MEDS ORDERED: FAMOTIDINE 20 MG TAB PO SCH (09:00)
[2018-10-31] MEDS: LACTATED RINGERS 1,000 ML IV SCH (09:12)
[2018-10-31] MEDS: SODIUM CHLORIDE 0.9% 1,000 ML IV SCH (09:23)
--- NOTE | 2018-10-31 10:49 | P.PN ---
Subjective Progress Note Date: 10/31/18 Principal diagnosis: Status post left total hip arthroplasty Patient evaluated at bedside today, she is resting comfortably. She's ambulated with therapy very well. Pain is well-controlled. She denies any chest pain or shortness of breath. Objective - Vital Signs Vital signs: Vital Signs Temp 97.4 F L 10/31/18 07:00 Pulse 78 10/31/18 07:00 Resp 16 10/31/18 07:00 BP 102/59 10/31/18 07:00 Pulse Ox 97 10/31/18 07:00 Intake & Output 10/30/18 10/31/18 10/31/18 18:59 06:59 18:59 Intake Total 1891 Output Total 500 Balance 1391 Intake: IV 1651 Oral 240 Output: Estimated Blood Loss 500 Other: Voiding Method Toilet Toilet # Voids 1 1 - Exam Left lower extremity: Incision is clean, dry, and intact. The exofin fusion tape is in good condition. There is minimal soft tissue swelling and ecchymosis surrounding the medial and lateral aspects of the incision. Calf is soft, no tenderness with palpation. Plantar flexion, dorsiflexion, EHL, FHL are intact. Sensory exam to light touch throughout the extremity is intact, dorsal pedis pulses 2+. - Labs CBC & Chem 7: 10/31/18 07:25 Labs: Abnormal Lab Results - Last 24 Hours (Table) 10/31/18 Range/Units 07:25 RBC 2.91 L (3.80-5.40) m/uL Hgb 8.4 L D (11.4-16.0) gm/dL Hct 26.3 L (34.0-46.0) % Assessment and Plan Plan: Assessment: Postoperative day 1 status post left total hip arthroplasty Acute blood loss anemia, expected surgical outcome Plan: Pain control, plan for discharge home on oral medication GI and DVT prophylaxis, 81 mg aspirin twice a day Wound care instructions discussed Home physical therapy and nursing after discharge Medical recommendations Ferrous sulfate 325 mg twice a day for 2-4 weeks Discharge planning: Plan for discharge home today Time with Patient: Less than 30
--- NOTE | 2018-10-31 10:54 | P.DS ---
Providers Date of admission: 10/30/18 08:18 Expected date of discharge: 10/31/18 Attending physician: Jovan Bangura Consults: 10/30/18 12:12 Consult Physician Routine Consulting Provider: Rajinder Travis Reason/Comments: Medical management Do you want consulting provider notified?: Yes Primary care physician: Rajinder Travis [facility] Course: Date of admission: 10/30/2018 Date of discharge: 10/31/2018 Admission diagnosis: Status post direct anterior left total hip arthroplasty Discharge diagnosis: Same Attending physician: Dr. Bangura Surgical procedures: Direct anterior left total hip arthroplasty Brief history: Patient is a 83-year-old female with a history of with progressive primary left hip osteoarthritis. At this point patient has failed conservative treatment measures and has opted to proceed with a elective direct anterior left total hip arthroplasty. Hospital course: Details of patient's surgery can be found in operative report. Patient tolerated the procedure well and was subsequently transported to orthopedic floor. Patient's orthopeidc and medical care was provided daily. Patient had daily laboratory tests performed for evaluation of overall blood counts. Patient had daily physical therapy to include strengthening range of motion as well as education with walker ambulation. Patient was treated with Lovenox for their postoperative DVT prophylaxis during their inpatient stay. Patient was noted to have a relatively uneventful postoperative course. Patient reported satisfactory pain control with oral pain medications by postoperative day 0. Patient showed satisfactory progress with physical therapy. Patient moved steadily through the program and had no difficulty meeting the goals by postoperative day 0. Given patient's otherwise satisfactory course and having met physical therapy goals, plan is to discharge patient home on postoperative day 1. Discharge condition/disposition: Patient will be discharged home in stable condition. Discharge medications: Instructions are given on resumption of patient's normal daily medications per primary care recommendation, in addition patient will be prescribed [place] 5 mg/325 mg, Colace 100 mg, ferrous sulfate 325 mg, aspirin 81 mg. Discharge instructions: 1. Wound care and infection precautions, keep incision dry and covered while showering, no lotions, creams, moisturizers. No soaking, tubs, pools, hottubs. Do not scrub over the incision. 2. Weight-bear as tolerated with walker / cane until follow-up. 3. Ice and elevate when necessary. Do not exceed 20 minutes per hour with ice pack. 4. Utilize compression sleeve until seen at first follow up appointment. 5. Visiting nursing care. 6. Home physical therapy. 7. Pain meds and anticoagulants per prescription. 8. Pain medication has potential to cause constipation. Increase oral fluid and fiber intake. Contact primary care provider if you have not had a bowel movement within 48 hours after discharge 9. No anti-inflammatory medication until discussed at first post operative visit, this including Motrin, Aleve, Mobic, Diclofenac. 10. Follow up in office at 2 weeks postop with Domingo Best PA-C 11. Follow up with your primary care doctor 7-10 days after discharge. 12. Contact [facility] with any questions, . Procedures: Direct anterior left total hip arthroplasty Patient Condition at Discharge: Good Plan - Discharge Summary Discharge Rx Participant: No New Discharge Prescriptions: New Aspirin [Adult Low Dose Aspirin EC] 81 mg PO BID #60 tablet. Docusate [Colace] 100 mg PO DAILY #30 capsule Ferrous Sulfate [Feosol] 325 mg PO BID #60 tab Hydrocodone/Acetaminophen [[place] 5-325] 1 each PO Q6HR PRN #30 tab PRN Reason: Pain No Action Vit C/E/Zn/Coppr/Lutein/Zeaxan [Preservision Areds 2 Softgel] 1 cap PO DAILY Acetaminophen Tab [Tylenol Tab] 325 mg PO Q6H PRN PRN Reason: Pain rOPINIRole HCL [Requip] 0.5 mg PO HS Naproxen Sodium [Aleve] 220 mg PO Q12HR PRN PRN Reason: Pain Mirabegron [Myrbetriq] 50 mg PO DAILY Levothyroxine Sodium [Synthroid] 88 mcg PO DAILY Discharge Medication List Vit C/E/Zn/Coppr/Lutein/Zeaxan [Preservision Areds 2 Softgel] 1 cap PO DAILY 08/25/17 [History] Acetaminophen Tab [Tylenol Tab] 325 mg PO Q6H PRN 10/19/18 [History] Levothyroxine Sodium [Synthroid] 88 mcg PO DAILY 10/19/18 [History] Mirabegron [Myrbetriq] 50 mg PO DAILY 10/19/18 [History] Naproxen Sodium [Aleve] 220 mg PO Q12HR PRN 10/19/18 [History] rOPINIRole HCL [Requip] 0.5 mg PO HS 10/19/18 [History] Aspirin [Adult Low Dose Aspirin EC] 81 mg PO BID #60 tablet. 10/31/18 [Rx] Docusate [Colace] 100 mg PO DAILY #30 capsule 10/31/18 [Rx] Ferrous Sulfate [Feosol] 325 mg PO BID #60 tab 10/31/18 [Rx] Hydrocodone/Acetaminophen [[place] 5-325] 1 each PO Q6HR PRN #30 tab 10/31/18 [Rx] Follow up Appointment(s)/Referral(s): [facility], [NON-STAFF] - Jayy Best PAC [PHYSICIAN SENIOR BILLING CONSULTANT] - 11/15/18 2:10 pm Rajinder Travis MD [Primary Care Provider] - 1 Week Activity/Diet/Wound Care/Special Instructions: Orthopedic Discharge Instructions: 1. Wound care and infection precautions, keep incision dry and covered while showering, no lotions, creams, moisturizers. No soaking, pools, hot tubs. Do not scrub over incision. 2. Weight-bear as tolerated with walker / cane until follow-up. 3. Ice and elevate when necessary. Do not exceed 20 minutes per hour with ice pack. 4. Utilize compression sleeve until seen at first follow up appointment. 5. Pain meds and anticoagulants per prescription. 6. Pain medication has potential to cause constipation. Increase oral fluid and fiber intake. Contact primary care provider if you have not had a bowel movement within 48 hours after discharge. 7. No anti-inflammatory medication until discussed at first post operative visit, this including Motrin, Aleve, Mobic, Diclofenac. 8. Follow up in office at 2 weeks postop with Domingo Best PA-C 9. Follow up with your primary care doctor 7-10 days after discharge. 10. Contact [facility] with any questions, . Discharge Disposition: HOME WITH HOME HEALTH SERVICES
--- NOTE | 2018-11-01 00:20 | PN ---
PROGRESS NOTE DATE OF SERVICE: 10/31/2018 PRESENTING COMPLAINT: Left total hip arthroplasty. INTERVAL HISTORY: Patient is status post left hip surgery. Pain is present. Overall doing better. Did work with therapy. No new issues. Did tolerate a diet. REVIEW OF SYSTEMS: Done for constitutional, cardiovascular, GI, pulmonary; relevant findings as above. CURRENT MEDICATIONS: Reviewed. PHYSICAL EXAMINATION: VITAL SIGNS: Temperature 97.4, pulse 72, respirations 16, blood pressure 102/59, pulse ox 97% on room air. GENERAL APPEARANCE: Sitting up comfortable. EYES: Pupils equal. Conjunctivae normal. NECK: JVD not raised. Mass not palpable. RESPIRATORY: Effort normal. LUNGS are clear. CARDIOVASCULAR: First and second sounds normal. No edema. ABDOMEN: Soft, nontender. Liver and spleen not palpable. PSYCHIATRY: Alert and oriented x3. Mood and affect normal. INVESTIGATIONS: White count 9.6, hemoglobin 8.4. ASSESSMENT: 1. Left total hip arthroplasty. 2. Primary osteoarthritis. 3. Hypothyroid. 4. Gastroesophageal reflux disease. 5. Chronic sciatica. 6. Chronic urinary incontinence. 7. Acute postoperative blood loss anemia expected from surgery. PLAN: Continue current medication and treatment plan. The patient may need iron supplementation. Otherwise patient doing well, stable. MMODL / IJN: [id number] /
== END 2018-10-31 12:37 | disposition home health service (06) | DRG 470 ==
LOC: 2ORMAIN 10-30 08:18 → 4SSUR 10-30 13:13
PROVIDERS: ADMIT Orthopaedic Surgery; ATTEND Orthopaedic Surgery
PROC: 0SRB04A Replacement of Left Hip Joint with Ceramic on Polyethylene Synthetic Substitute, Uncemented, Open Approach (ICD-10-PCS; principal; 2018-10-30 10:05)
DX: M16.12 Unilateral primary osteoarthritis, left hip (principal); D62 Acute posthemorrhagic anemia; I10 Essential (primary) hypertension; E03.9 Hypothyroidism, unspecified; K21.9 Gastro-esophageal reflux disease without esophagitis; M54.30 Sciatica, unspecified side; N39.3 Stress incontinence (female) (male); H35.30 Unspecified macular degeneration; Z79.890 Hormone replacement therapy; Z79.899 Other long term (current) drug therapy; Z96.641 Presence of right artificial hip joint; Z87.19 Personal history of other diseases of the digestive system; Z87.440 Personal history of urinary (tract) infections; Z98.42 Cataract extraction status, left eye; Z98.51 Tubal ligation status; Z98.41 Cataract extraction status, right eye; Z88.2 Allergy status to sulfonamides; Z80.3 Family history of malignant neoplasm of breast; Z80.1 Family history of malignant neoplasm of trachea, bronchus and lung
CPT/HCPCS: 73501; 85025; 86850; 86900; 86901; 88300

== ENCOUNTER → 2018-10-18 | Outpatient (CLI) | payer MEDICARE | END | disposition home or self-care (01) | LOC: LABPAT 10:32 | PROVIDERS: ATTEND Orthopaedic Surgery | DX: Z01.812 Encounter for preprocedural laboratory examination (principal); M16.12 Unilateral primary osteoarthritis, left hip | CPT/HCPCS: 86850; 86900; 86901 ==

== ENCOUNTER → 2018-12-05 | Outpatient (CLI) | payer MEDICARE ==
--- NOTE | 2018-12-05 14:35 | US ---
EXAMINATION TYPE: US thyroid st tissue head/neck DATE OF EXAM: 12/05/2018 COMPARISON: NONE CLINICAL HISTORY: D48.7 Neoplasm of uncertain behavior of other spec. Palpable right neck mass. TECHNIQUE: Targeted ultrasound was performed of the patient's right neck at the site of palpable abno rmality. At patients palpable is a vascular complex mass measuring 2.3 x 2.1 x 2.4cm. This is partially cystic and partially solid lateral to the thyroid gland. This is a suspicious mass that could represent nec rotic adenopathy, hematoma, or neoplasm such as a salivary gland tumor. IMPRESSION: Vascular 2.47 m complex mass corresponding the palpable abnormality within the right nec k lateral to the thyroid gland. Percutaneous biopsy is recommended.
== END | disposition home or self-care (01) ==
LOC: RADUSWWP 13:35
PROVIDERS: ATTEND Internal Medicine
DX: R22.1 Localized swelling, mass and lump, neck (principal)
CPT/HCPCS: 76536

== ENCOUNTER 2018-12-23 13:33 | Emergency (ER) | payer MEDICARE ==
[2018-12-23] MEDS ORDERED: AZITHROMYCIN 500 MG TAB PO STA (14:35)
[2018-12-23] MEDS ORDERED: cefTRIAXone IN SWFI 1,000 MG/10 ML SYRINGE IVP STA (14:35)
--- NOTE | 2018-12-23 14:40 | ED ---
Female Urogenital HPI - General Chief complaint: Urogenital Stated complaint: Urogenital Time Seen by Provider: 12/23/18 14:24 Source: patient Mode of arrival: ambulatory Limitations: no limitations - History of Present Illness Initial comments: Patient is an 83-year-old female presents with a chief complaint of lower abdominal pain. The patient states she has a pessary inby Dr. Jones. She states that she has had numerous issues with Pessary as before. She states that this one is in crooked and causing her pain. She states she wants a pessary ou t. Patient states that she has not had a fever or chills. She states that she doesn't feel like eating but otherwise not have any other constitutional symptoms. - Related Data Home Medications Medication Instructions Recorded Confirmed Levothyroxine Sodium [Synthroid] 88 mcg PO DAILY 10/19/18 12/23/18 rOPINIRole HCL [Requip] 0.5 mg PO HS 10/19/18 12/23/18 Previous Rx's Medication Instructions Recorded Cephalexin [Keflex] 500 mg PO Q6HR 7 Days #28 cap 12/23/18 Allergies Allergy/AdvReac Type Severity Reaction Status Date / Time Sulfa (Sulfonamide Allergy Rash/Hives Verified 12/23/18 14:36 Antibiotics) Review of Systems ROS Statement: Those systems with pertinent positive or pertinent negative responses have been documented in the HPI. ROS Other: All systems not noted in ROS Statement are negative. Gastrointestinal: Reports: abdominal pain Genitourinary: Reports: urgency Past Medical History Past Medical History: GERD/Reflux, Osteoarthritis (OA), Thyroid Disorder Additional Past Medical History / Comment(s): diverticulitis, sciatica, urinary leakage/ urgency at night ( has urinary pessary), macular degeneration anca eyes, History of Any Multi-Drug Resistant Organisms: None Reported Past Surgical History: Joint Replacement, Orthopedic Surgery, Tonsillectomy, Tubal Ligation Additional Past Surgical History / Comment(s): anca cataracts, hole in macula of the rt eye repaired, rt hip replacement, left hip replacement Past Anesthesia/Blood Transfusion Reactions: Previous Problems w/ Anesthesia, Family History of Problems w/ Anesthesia Additional Past Anesthesia/Blood Transfusion Reaction / Comment(s): "i did not go to sleep right away with cataract procedure", brother -hard time waking up Past Psychological History: No Psychological Hx Reported Smoking Status: Former smoker Past Alcohol Use History: None Reported Past Drug Use History: None Reported - Past Family History Mother Family Medical History: Cancer Brother(s) Family Medical History: Cancer General Exam Limitations: no limitations General appearance: alert, in no apparent distress Head exam: Present: atraumatic, normocephalic Eye exam: Present: normal appearance ENT exam: Present: normal exam Neck exam: Present: normal inspection Respiratory exam: Present: normal lung sounds bilaterally. Absent: respiratory distress, wheezes Cardiovascular Exam: Present: regular rate, normal rhythm GI/Abdominal exam: Present: soft. Absent: distended, tenderness Rectal exam: Present: deferred External exam: Present: normal external exam By manual exam: Present: normal by manual exam, other (Pessary removed, there is yellow-brown discharge on vaginal exam. ) Extremities exam: Present: normal inspection Back exam: Present: normal inspection Neurological exam: Present: alert, oriented X3 Psychiatric exam: Present: normal affect, normal mood Skin exam: Present: warm, dry, intact Course Vital Signs 12/23/18 12/23/18 14:07 15:50 Temperature 100.7 F H 98 F Pulse Rate 106 H 87 Respiratory 20 19 Rate Blood Pressure 118/67 136/77 O2 Sat by Pulse 99 96 Oximetry Medical Decision Making - Medical Decision Making Patient presents with a chief complaint of lower abdominal pain and dysuria. On initial evaluation, she is mildly febrile but otherwise vital signs are stable. She is alert and oriented, appropriate in the exam room. She states she wants her pessary removed. Patient will be evaluated basic lab work, she was given a dose of Rocephin and azithromycin. We'll contact Dr. Jones. 3:37 PM Case discussed with Dr. Dietz does not have any further concerns regarding the pessary. 4:50 PM Urinalysis shows evidence of infection, labs are otherwise unremarkable. At this time patient states she is feeling better. She is able to discharge. Patient was instructed to follow up with primary care and [employer] in 1-2 days, return to ED as symptoms worsen or change. She was prescribed Keflex for UTI. - Lab Data Result diagrams: 12/23/18 15:05 12/23/18 15:05 Lab Results 12/23/18 12/23/18 12/23/18 Range/Units 15:05 15:05 15:36 WBC 8.7 (3.8-10.6) k/uL RBC 4.16 (3.80-5.40) m/uL Hgb 11.7 D (11.4-16.0) gm/dL Hct 36.8 (34.0-46.0) % MCV 88.5 (80.0-100.0) fL MCH 28.1 (25.0-35.0) pg MCHC 31.7 (31.0-37.0) g/dL RDW 13.6 (11.5-15.5) % Plt Count 131 L (150-450) k/uL Neutrophils % 76 % Lymphocytes % 14 % Monocytes % 8 % Eosinophils % 2 % Basophils % 0 % Neutrophils # 6.6 (1.3-7.7) k/uL Lymphocytes # 1.2 (1.0-4.8) k/uL Monocytes # 0.7 (0-1.0) k/uL Eosinophils # 0.2 (0-0.7) k/uL Basophils # 0.0 (0-0.2) k/uL Sodium 135 L (137-145) mmol/L Potassium 5.3 H (3.5-5.1) mmol/L Chloride 97 L (98-107) mmol/L Carbon Dioxide 26 (22-30) mmol/L Anion Gap 12 mmol/L BUN 17 (7-17) mg/dL Creatinine 0.68 (0.52-1.04) mg/dL Est GFR (CKD-EPI)AfAm >90 (>60 ml/min/1.73 sqM) Est GFR (CKD-EPI)NonAf 82 (>60 ml/min/1.73 sqM) Glucose 98 (74-99) mg/dL Calcium 9.0 (8.4-10.2) mg/dL Total Bilirubin 0.7 (0.2-1.3) mg/dL AST 31 (14-36) U/L ALT 11 (9-52) U/L Alkaline Phosphatase 75 (38-126) U/L Total Protein 7.5 (6.3-8.2) g/dL Albumin 3.9 (3.5-5.0) g/dL Lipase 248 (23-300) U/L Urine Color Yellow Urine Appearance Clear (Clear) Urine pH 6.5 (5.0-8.0) Ur Specific [place] 1.023 (1.001-1.035) Urine Protein 1+ H (Negative) Urine Glucose (UA) Negative (Negative) Urine Ketones Negative (Negative) Urine Blood Moderate H (Negative) Urine Nitrite Negative (Negative) Urine Bilirubin Negative (Negative) Urine Urobilinogen <2.0 (<2.0) mg/dL Ur Leukocyte Esterase Large H (Negative) Urine RBC 149 H (0-5) /hpf Urine WBC 54 H (0-5) /hpf Urine Bacteria Rare H (None) /hpf Urine Mucus Few H (None) /hpf Disposition Clinical Impression: UTI (urinary tract infection) Disposition: HOME SELF-CARE Condition: Good Instructions (If sedation given, give patient instructions): Urinary Tract Infection in Women (ED) Prescriptions: Cephalexin [Keflex] 500 mg PO Q6HR 7 Days #28 cap Is patient prescribed a controlled substance at d/c from ED?: No Referrals: Rajinder Travis MD [Primary Care Provider] - 1-2 days
[2018-12-23 15:35] LABS: Basophils % (A) 0 %; Eosinophils # (A) 0.2 k/uL (0-0.7); Eosinophils % (A) 2 %; HCT 36.8 % (34.0-46.0); Lymphocytes # (A) 1.2 k/uL (1.0-4.8); Lymphocytes % (A) 14 %; MCH 28.1 pg (25.0-35.0); MCHC 31.7 g/dL (31.0-37.0); MCV 88.5 fL (80.0-100.0); Mean Platelet Volume 8.5; Monocytes # (A) 0.7 k/uL (0-1.0); Monocytes % (A) 8 %; Neutrophils # (A) 6.6 k/uL (1.3-7.7); Neutrophils % (A) 76 %; Platelet Count 131 k/uL (150-450); RBC 4.16 m/uL (3.80-5.40); RDW 13.6 % (11.5-15.5); WBC 8.7 k/uL (3.8-10.6)
[2018-12-23 15:36] LABS: HGB 11.7 gm/dL (11.4-16.0)
[2018-12-23 15:42] LABS: ALT 11 U/L (9-52); AST 31 U/L (14-36); African American GFR (CKD) >90 (>60 ml/min/1.73 sqM); Albumin 3.9 g/dL (3.5-5.0); Alkaline Phosphatase 75 U/L (38-126); Anion Gap 12 mmol/L; Blood Urea Nitrogen 17 mg/dL (7-17); Carbon Dioxide 26 mmol/L (22-30); Chloride 97 mmol/L (98-107); Glucose 98 mg/dL (74-99); Potassium 5.3 mmol/L (3.5-5.1); Sodium 135 mmol/L (137-145); Total Bilirubin 0.7 mg/dL (0.2-1.3); Total Protein 7.5 g/dL (6.3-8.2)
[2018-12-23 15:59] LABS: Appearance,Urine Clear (Clear); Bacteria,Urine Rare /hpf; Bilirubin,Urine Negative (Negative); Blood,Urine Moderate (Negative); Color,Urine Yellow; Glucose,Urine (UA) Negative (Negative); Ketones,Urine Negative (Negative); Leukocyte Esterase,Urine Large (Negative); Mucus,Urine Few /hpf; Nitrite,Urine Negative (Negative); PH, Urine 6.5 (5.0-8.0); Protein,Urine 1+ (Negative); RBC,Urine 149 /hpf (0-5); Specific Gravity,Urine 1.023 (1.001-1.035); Urobilinogen,Urine <2.0 mg/dL (<2.0); WBC,Urine 54 /hpf (0-5)
[2018-12-23 17:01] VITALS: BP 124/77; PULSE 90; RESP 18; TEMP 98.3
== END 2018-12-23 17:01 | disposition home or self-care (01) ==
LOC: EC 13:33
DX: N39.0 Urinary tract infection, site not specified (principal); E07.9 Disorder of thyroid, unspecified; M19.90 Unspecified osteoarthritis, unspecified site; Z87.19 Personal history of other diseases of the digestive system; Z98.51 Tubal ligation status; Z96.643 Presence of artificial hip joint, bilateral; Z87.891 Personal history of nicotine dependence; Z79.890 Hormone replacement therapy; Z79.899 Other long term (current) drug therapy; Z88.2 Allergy status to sulfonamides
CPT/HCPCS: 36415; 80053; 83690; 85025; 81001; 87040; 99284; 96374; J0696

== ENCOUNTER 2018-12-26 07:53 | Day surgery (SDC) | payer MEDICARE ==
[2018-12-26 08:34] VITALS: RESP 16; TEMP 97.3
[2018-12-26 09:32] VITALS: BP 111/61; PULSE 86
--- NOTE | 2018-12-26 10:08 | US ---
ULTRASOUND GUIDED FNA RIGHT NECK MASS BIOPSY: CLINICAL HISTORY: Cystic right neck mass FINDINGS: The procedure was explained to the patient. The risks, complications, benefits and alternatives were discussed and any questions were answered. Informed consent was obtained. Patient was placed supin e on the ultrasound table and prepped and draped in the usual sterile fashion. Utilizing a 25 gauge needle, five passes were made into the cystic right neck mass. Patient was stable throughout the procedure. Pathology is pending. All elements of maximal barrier and sterile technique were utilized. Note is made that the mass was p redominantly fluid which may lower diagnostic yield. IMPRESSION: 1. Successful ultrasound guided FNA right neck mass biopsy.
== END 2018-12-26 09:26 | disposition home or self-care (01) ==
LOC: RADPROMAIN 07:53
PROVIDERS: ATTEND Internal Medicine
DX: C79.89 Secondary malignant neoplasm of other specified sites (principal); C80.1 Malignant (primary) neoplasm, unspecified
CPT/HCPCS: 10005; 88173; 88305; 88341; 88342

== ENCOUNTER 2018-12-27 10:53 | Inpatient (IN) | payer MEDICARE ==
[2018-12-27] MEDS ORDERED: SODIUM CHLORIDE 0.9% 1,000 ML IV STA (11:33)
[2018-12-27 12:21] LABS: Basophils # (A) 0.1 k/uL (0-0.2); Basophils % (A) 1 %; Eosinophils # (A) 0.2 k/uL (0-0.7); Eosinophils % (A) 2 %; HGB 11.1 gm/dL (11.4-16.0); Lymphocytes # (A) 0.9 k/uL (1.0-4.8); Lymphocytes % (A) 8 %; MCH 27.4 pg (25.0-35.0); MCHC 31.6 g/dL (31.0-37.0); MCV 86.5 fL (80.0-100.0); Mean Platelet Volume 7.2; Monocytes # (A) 0.8 k/uL (0-1.0); Monocytes % (A) 7 %; Neutrophils % (A) 81 %; RBC 4.04 m/uL (3.80-5.40); WBC 11.1 k/uL (3.8-10.6)
[2018-12-27 12:27] LABS: Platelet Count 315 k/uL (150-450)
[2018-12-27 12:30] LABS: ALT 15 U/L (9-52); AST 26 U/L (14-36); African American GFR (CKD) >90 (>60 ml/min/1.73 sqM); Albumin 3.4 g/dL (3.5-5.0); Alkaline Phosphatase 72 U/L (38-126); Amylase 56 U/L (30-110); Anion Gap 9 mmol/L; Blood Urea Nitrogen 19 mg/dL (7-17); Calcium 8.6 mg/dL (8.4-10.2); Carbon Dioxide 25 mmol/L (22-30); Chloride 99 mmol/L (98-107); Glucose 117 mg/dL (74-99); Potassium 4.8 mmol/L (3.5-5.1); Sodium 133 mmol/L (137-145); Total Bilirubin 0.3 mg/dL (0.2-1.3); Total Protein 6.9 g/dL (6.3-8.2)
--- NOTE | 2018-12-27 13:23 | ED ---
Abdominal Pain HPI - General Source: patient, RN notes reviewed Mode of arrival: wheelchair Limitations: no limitations <Alberto Mcfarland - Last Filed: 12/27/18 14:29> <Rodo Grover - Last Filed: 12/27/18 15:06> - General Chief Complaint: Abdominal Pain Stated Complaint: Weakness Time Seen by Provider: 12/27/18 11:33 - History of Present Illness Initial Comments: 83-year-old female presents emergency from chief complaint abdominal discomfort, diarrhea. Patient states she seen a few days ago for similar complaints but has worsened. She states that it was related to her pessary which was removed. Patient states the diarrhea for over a week now. Patient denies any melena or hematochezia. No fevers or chills. Patient states she's has a decreased oral intake but denies any vomiting. Denies chest pain or shortness breath. Denies any dysuria but states that she is currently treated for urinary tract infec tion. (Alberto Mcfarland) - Related Data Home Medications Medication Instructions Recorded Confirmed Levothyroxine Sodium [Synthroid] 88 mcg PO DAILY 10/19/18 12/27/18 rOPINIRole HCL [Requip] 0.5 mg PO HS 10/19/18 12/27/18 Aspirin [Adult Low Dose Aspirin EC] 81 mg PO BID 12/26/18 12/27/18 Previous Rx's Medication Instructions Recorded Cephalexin [Keflex] 500 mg PO Q6HR 7 Days #28 cap 12/23/18 Allergies Allergy/AdvReac Type Severity Reaction Status Date / Time Sulfa (Sulfonamide Allergy Rash/Hives Verified 12/27/18 11:22 Antibiotics) Review of Systems ROS Other: All systems not noted in ROS Statement are negative. <Alberto Mcfarland - Last Filed: 12/27/18 14:29> ROS Other: All systems not noted in ROS Statement are negative. <Rodo Grover - Last Filed: 12/27/18 15:06> ROS Statement: Those systems with pertinent positive or pertinent negative responses have been documented in the HPI. Past Medical History Past Medical History: GERD/Reflux, Osteoarthritis (OA), Thyroid Disorder Additional Past Medical History / Comment(s): diverticulitis, sciatica, urinary leakage/ urgency at night ( has urinary pessary), macular degeneration anca eyes, History of Any Multi-Drug Resistant Organisms: None Reported Past Surgical History: Joint Replacement, Orthopedic Surgery, Tonsillectomy, Tubal Ligation Additional Past Surgical History / Comment(s): anca cataracts, hole in macula of the rt eye repaired, rt hip replacement, left hip replacement Past Anesthesia/Blood Transfusion Reactions: Previous Problems w/ Anesthesia, Family History of Problems w/ Anesthesia Additional Past Anesthesia/Blood Transfusion Reaction / Comment(s): "i did not go to sleep right away with cataract procedure", brother -hard time waking up Past Psychological History: No Psychological Hx Reported Smoking Status: Former smoker Past Alcohol Use History: None Reported Past Drug Use History: None Reported - Past Family History Mother Family Medical History: Cancer Brother(s) Family Medical History: Cancer <Alberto Mcfarland - Last Filed: 12/27/18 14:29> General Exam Limitations: no limitations General appearance: alert, in no apparent distress Head exam: Present: atraumatic, normocephalic, normal inspection Eye exam: Present: normal appearance, PERRL, EOMI. Absent: scleral icterus, conjunctival injection, periorbital swelling Neck exam: Present: normal inspection. Absent: tenderness, meningismus, lymphadenopathy Respiratory exam: Present: normal lung sounds bilaterally. Absent: respiratory distress, wheezes, rales, rhonchi, stridor Cardiovascular Exam: Present: regular rate, normal rhythm, normal heart sounds. Absent: systolic murmur, diastolic murmur, rubs, gallop, clicks GI/Abdominal exam: Present: soft, tenderness (Mild left lower quadrant), normal bowel sounds. Absent: distended, guarding, rebound, rigid <Alberto Mcfarland - Last Filed: 12/27/18 14:29> Course Vital Signs 12/27/18 12/27/18 11:02 13:05 Temperature 98.3 F Pulse Rate 107 H 69 Respiratory 18 16 Rate Blood Pressure 100/63 136/74 O2 Sat by Pulse 97 97 Oximetry Medical Decision Making - Lab Data Result diagrams: 12/27/18 11:33 12/27/18 11:33 <Alberto Mcfarland - Last Filed: 12/27/18 14:29> - Lab Data Result diagrams: 12/27/18 11:33 12/27/18 11:33 <Rodo Grover - Last Filed: 12/27/18 15:06> - Medical Decision Making 83-year-old female presented emergency from for lower abdominal discomfort and diarrhea. Patient lab was repeated from prior, urinalysis and CT CT shows evidence of ascites along with multiple enlarged lymph nodes concerning for metastatic cancer. Patient has no history of cancer patient will be admitted for oncology evaluation. (Alberto Mcfarland) Case discussed with practitioner Alberto. Case also discussed with Dr. Jeter, who will admit covered for Dr. Diaz. He does request consult with GI as well as oncology. Chart and results reviewed. (Rodo Grover) - Lab Data Lab Results 12/27/18 12/27/18 12/27/18 Range/Units 11:33 11:33 11:33 WBC 11.1 H (3.8-10.6) k/uL RBC 4.04 (3.80-5.40) m/uL Hgb 11.1 L (11.4-16.0) gm/dL Hct 35.0 (34.0-46.0) % MCV 86.5 (80.0-100.0) fL MCH 27.4 (25.0-35.0) pg MCHC 31.6 (31.0-37.0) g/dL RDW 13.0 (11.5-15.5) % Plt Count 315 D (150-450) k/uL Neutrophils % 81 % Lymphocytes % 8 % Monocytes % 7 % Eosinophils % 2 % Basophils % 1 % Neutrophils # 9.0 H (1.3-7.7) k/uL Lymphocytes # 0.9 L (1.0-4.8) k/uL Monocytes # 0.8 (0-1.0) k/uL Eosinophils # 0.2 (0-0.7) k/uL Basophils # 0.1 (0-0.2) k/uL Sodium 133 L (137-145) mmol/L Potassium 4.8 (3.5-5.1) mmol/L Chloride 99 (98-107) mmol/L Carbon Dioxide 25 (22-30) mmol/L Anion Gap 9 mmol/L BUN 19 H (7-17) mg/dL Creatinine 0.71 (0.52-1.04) mg/dL Est GFR (CKD-EPI)AfAm >90 (>60 ml/min/1.73 sqM) Est GFR (CKD-EPI)NonAf 80 (>60 ml/min/1.73 sqM) Glucose 117 H (74-99) mg/dL Plasma Lactic Acid [place] 1.2 (0.7-2.0) mmol/L Calcium 8.6 (8.4-10.2) mg/dL Total Bilirubin 0.3 (0.2-1.3) mg/dL AST 26 (14-36) U/L ALT 15 (9-52) U/L Alkaline Phosphatase 72 (38-126) U/L Total Protein 6.9 (6.3-8.2) g/dL Albumin 3.4 L (3.5-5.0) g/dL Amylase 56 (30-110) U/L Lipase 101 (23-300) U/L Urine Color Urine Appearance (Clear) Urine pH (5.0-8.0) Ur Specific [place] (1.001-1.035) Urine Protein (Negative) Urine Glucose (UA) (Negative) Urine Ketones (Negative) Urine Blood (Negative) Urine Nitrite (Negative) Urine Bilirubin (Negative) Urine Urobilinogen (<2.0) mg/dL Ur Leukocyte Esterase (Negative) Urine RBC (0-5) /hpf Urine WBC (0-5) /hpf Ur Squamous Epith Cells (0-4) /hpf Calcium Oxalate Crystal (None) /hpf Hyaline Casts (0-2) /lpf Urine Mucus (None) /hpf 12/27/18 Range/Units 12:50 WBC (3.8-10.6) k/uL RBC (3.80-5.40) m/uL Hgb (11.4-16.0) gm/dL Hct (34.0-46.0) % MCV (80.0-100.0) fL MCH (25.0-35.0) pg MCHC (31.0-37.0) g/dL RDW (11.5-15.5) % Plt Count (150-450) k/uL Neutrophils % % Lymphocytes % % Monocytes % % Eosinophils % % Basophils % % Neutrophils # (1.3-7.7) k/uL Lymphocytes # (1.0-4.8) k/uL Monocytes # (0-1.0) k/uL Eosinophils # (0-0.7) k/uL Basophils # (0-0.2) k/uL Sodium (137-145) mmol/L Potassium (3.5-5.1) mmol/L Chloride (98-107) mmol/L Carbon Dioxide (22-30) mmol/L Anion Gap mmol/L BUN (7-17) mg/dL Creatinine (0.52-1.04) mg/dL Est GFR (CKD-EPI)AfAm (>60 ml/min/1.73 sqM) Est GFR (CKD-EPI)NonAf (>60 ml/min/1.73 sqM) Glucose (74-99) mg/dL Plasma Lactic Acid [place] (0.7-2.0) mmol/L Calcium (8.4-10.2) mg/dL Total Bilirubin (0.2-1.3) mg/dL AST (14-36) U/L ALT (9-52) U/L Alkaline Phosphatase (38-126) U/L Total Protein (6.3-8.2) g/dL Albumin (3.5-5.0) g/dL Amylase (30-110) U/L Lipase (23-300) U/L Urine Color Yellow Urine Appearance Clear (Clear) Urine pH 6.0 (5.0-8.0) Ur Specific [place] 1.029 (1.001-1.035) Urine Protein 1+ H (Negative) Urine Glucose (UA) Negative (Negative) Urine Ketones Negative (Negative) Urine Blood Small H (Negative) Urine Nitrite Negative (Negative) Urine Bilirubin Negative (Negative) Urine Urobilinogen 3.0 (<2.0) mg/dL Ur Leukocyte Esterase Small H (Negative) Urine RBC 14 H (0-5) /hpf Urine WBC 15 H (0-5) /hpf Ur Squamous Epith Cells <1 (0-4) /hpf Calcium Oxalate Crystal Rare H (None) /hpf Hyaline Casts 33 H (0-2) /lpf Urine Mucus Moderate H (None) /hpf Disposition <Alberto Mcfarland - Last Filed: 12/27/18 14:29> <Rodo Grover - Last Filed: 12/27/18 15:06> Clinical Impression: Abdominal pain, Ascites, Metastatic cancer Disposition: ADMITTED IP TO THIS HOSP Condition: Fair Referrals: Rajinder Travis MD [Primary Care Provider] - 1-2 days
[2018-12-27 13:29] LABS: Appearance,Urine Clear (Clear); Bilirubin,Urine Negative (Negative); Blood,Urine Small (Negative); Calcium Oxalate Crystals,Urine Rare /hpf; Color,Urine Yellow; Glucose,Urine (UA) Negative (Negative); Hyaline Casts,Urine 33 /lpf (0-2); Ketones,Urine Negative (Negative); Leukocyte Esterase,Urine Small (Negative); Mucus,Urine Moderate /hpf; Nitrite,Urine Negative (Negative); Protein,Urine 1+ (Negative); RBC,Urine 14 /hpf (0-5); Specific Gravity,Urine 1.029 (1.001-1.035); Squamous Epithelial Cell,Urine <1 /hpf (0-4)
--- NOTE | 2018-12-27 14:04 | CT ---
EXAMINATION TYPE: CT abdomen pelvis w con DATE OF EXAM: 12/27/2018 COMPARISON: NONE HISTORY: 83-year-old female Weakness and pain, bladder infection-per pt TECHNIQUE: Contiguous axial scanning of the abdomen and pelvis following administration of 100 ml Iso jamey 300 IV contrast. Delayed images through the kidneys and coronal/sagittal reconstructions perform ed. CT DLP: 520.3 mGycm Automated exposure control for dose reduction was used. FINDINGS: Heart normal size. Strandy atelectasis or scarring in the lower lungs. Possible partially visualized 7 mm right lower lobe pulmonary nodule on axial image 1. A couple addit ional 5 mm and 4 mm right basilar pulmonary nodules are suggested. There is a 2.4 x 1.5 cm nodular density along the right cardiophrenic angle, axial image 10. Small hiatal hernia. Wedge-shaped hypoperfusion along the inferior right liver lobe could represent some perfusion variati on. Portal venous system is patent. No biliary ductal dilatation. Gallbladder within normal limits. Adrenal glands, kidneys with extrarenal pelves, spleen, and pancreas appear within normal limits. Mild upper abdominal ascites, mild interloop ascites. Celiac axis lymphadenopathy measuring up to 1.2 cm. Additional retroperitoneal lymphadenopathy. Aorto caval lymph node measures 2.8 cm. Left perinephric lymph node measures 1.7 cm. Scattered prominent small bowel loops some with internal equalization suggesting stasis. There is omental caking along the lower abdomen and anterior pelvis. Peritoneal nodule left upper yoon drant measuring 2.0 cm. Additional peritoneal mass left mid abdomen measures 3.1 x 2.3 cm. Mild to moderate stool burden. Left-sided colonic diverticulosis, greatest in the sigmoid colon. Bladder is nondistended. Very limited visualization of the pelvis due to prominent artifacts related the patient's total hip arthroplasties. There is moderate ascites relegated to the pelvis with peripheral peritoneal enhancement. Rounded soft tissue densities in the pelvis are partially obscured and centrally measure 3.8 cm and t owards the right measure 2.9 cm. Right external iliac chain lymph node measures 1.1 cm. Bones: No osseous destructive process. Facet arthropathy with grade 1 anterolisthesis at L4-L5. IMPRESSION: 1. MILD TO MODERATE ABDOMINOPELVIC ASCITES. THE ASCITES SHOWS SMOOTH ENHANCING PERITONEUM IN THE PELV IS WHICH MAY BE SEEN WITH PERITONITIS. 2. HOWEVER, THERE ARE ADDITIONAL FINDINGS OF RETROPERITONEAL LYMPHADENOPATHY MEASURING UP TO 2.8 CM, DENSE OMENTAL CAKING IN THE LOWER ABDOMEN, LEFT UPPER QUADRANT AND LEFT MID ABDOMINAL PERITONEAL DEPO SITS MEASURING UP TO 3.1 CM, PROBABLE 2.4 CM RIGHT PERICARDIAC LYMPH NODE, AND SOME RIGHT BASILAR PUL MONARY NODULES MEASURING UP TO 7 MM. FINDINGS SUGGEST METASTATIC DISEASE. 3. PELVIC STRUCTURES ARE SUBOPTIMALLY VISUALIZED DUE TO EXTENSIVE ARTIFACT FROM THE PATIENT'S BILATER AL HIP REPLACEMENTS.
[2018-12-27] MEDS ORDERED: NALOXONE 0.4 MG/ML 1 ML VIAL IV PRN (14:31)
[2018-12-27] MEDS ORDERED: HYDROcodone/APAP 5-325MG 1 EACH TAB PO PRN (14:31)
[2018-12-27 16:09] VITALS: BMI 21.5
[2018-12-27] MEDS: SODIUM CHLORIDE 0.9% 1,000 ML IV SCH (16:23)
[2018-12-27] MEDS: ACETAMINOPHEN TAB 325 MG TAB PO PRN (16:23)
[2018-12-27] MEDS: ONDANSETRON 4 MG/2 ML VIAL IVP PRN (19:56)
[2018-12-27 21:28] VITALS: RESP 16
--- NOTE | 2018-12-27 22:28 | P.HPIM ---
History of Present Illness H&P Date: 12/27/18 Chief Complaint: Abdominal pain History of presenting complaint: This is a pleasant 83-year-old patient of Dr. Rajinder Diaz. Patient has a long- standing bladder uterine prolapse. For which she's had a pessary. Every time she has to get it taken out and really hurts a lot and often times bleeds. She came to the ER about 10 days ago as it was hurting her a lot. The ER physician to get out. Also given some antibiotic. She was doing fine. States that when she started having increasing lower abdominal pain. She noticed that every time she would could've the bathroom urine would pour out. Also she had some diarrhea the last few days. No nausea vomiting. No fever no chills. She was told to return to the ER has lower abdominal pain does not improve. Hence she is here. Chronic stable medical conditions include GERD, osteoarthritis, hypothyroid, scitica, macular degeneration Review of systems: GEN.: Tired EYES: None HEENT: Decreased hearing NECK: None RESPIRATORY: None CARDIOVASCULAR: None GASTROINTESTINAL: Patient also had some diarrhea the last few days. Which is actually improved GENITOURINARY: As above MUSCULOSKELETAL: Some pain in the joints LYMPHATICS: None HEMATOLOGICAL: None PSYCHIATRY: Bit anxious NEUROLOGICAL: None Past medical history: GERD, osteoarthritis, hypothyroid, diverticulitis, sciatica, urinary incontinence, macular degeneration, uterine and bladder prolapse Social history: Does not smoke or drink alcohol. Lives alone. Family history: Cancer type unknown Physical examination: VITAL SIGNS: 98.3, 69, 16, 136/74, 97% room air GENERAL: BMI 21.6, sitting up a bit anxious. EYES: Pupils equal. Conjunctiva normal. HEENT: External appearance of nose and ears normal, oral cavity grossly normal. NECK: JVD not raised; masses not palpable. HEART: First and second heart sounds are normal; no edema. LUNGS: Respiratory rate normal; clear to auscultation. ABDOMEN: Soft, some lower abdominal tenderness, no guarding or rigidity, liver spleen not palpable, no masses palpable. PSYCH: Alert and oriented x3; mood and affect anxiousl. NEUROLOGICAL: Cranial nerves grossly intact; no facial asymmetry, power and s ensation grossly intact. LYMPHATICS: No lymph nodes palpable in the axilla and neck INVESTIGATIONS, reviewed in the clinical context: White count 11.1 hemoglobin 11.1 potassium 4.8 creatinine 0.71 Computed tomography scan of the abdomen-shows some ascites and retroperitoneal lymphadenopathy dense omental caking and some right basilar pulmonary nodules Assessment: -This patient presents with lower abdominal pain for last 4-5 days after his pessary was taken out. Patient has some pain before that. Computed tomography scan is showing evidence of what appears to be metastatic disease. -GERD -Primary osteoarthritis -Hypothyroid -Chronic urinary incontinence from bladder prolapse -Normocytic anemia cause unknown Plan: Consultation is made both to oncology and GI. Patient does follow with Dr. Jones from [facility]. Care was discussed with the patient. Home medications resumed. Past Medical History Past Medical History: Eye Disorder, GERD/Reflux, Osteoarthritis (OA), Thyroid Disorder Additional Past Medical History / Comment(s): Pt states she recently discovered R neck lump and had FNA/bx on 12/26/18-she states she also just discovered a small lump in L axillae, recent removal of bladder pessary, current UTI, past UTIs, diverticulosis, frequent diarrhea, hypothyroid, bilateral macular degeneration, sinus problems History of Any Multi-Drug Resistant Organisms: None Reported Past Surgical History: Adenoidectomy, Joint Replacement, Orthopedic Surgery, Tonsillectomy, Tubal Ligation Additional Past Surgical History / Comment(s): 12/26/18 FNA R neck mass, 10/30/18 total L hip arthroplasty, R hip arthroplasty, bilateral cataract removals/lens implants, R eye laser surgery to repair macula hole, colonoscopies. Past Anesthesia/Blood Transfusion Reactions: Previous Problems w/ Anesthesia, Family History of Problems w/ Anesthesia Additional Past Anesthesia/Blood Transfusion Reaction / Comment(s): "i did not go to sleep right away with cataract procedure", brother -hard time waking up Smoking Status: Former smoker - Past Family History Mother Family Medical History: Cancer Additional Family Medical History / Comment(s): Mother first had uterine cancer then lung cancer. Brother(s) Family Medical History: Cancer Additional Family Medical History / Comment(s): Bladder cancer. Father Family Medical History: No Reported History Additional Family Medical History / Comment(s): Father was healthy. Medications and Allergies Home Medications Medication Instructions Recorded Confirmed Type Levothyroxine Sodium [Synthroid] 88 mcg PO DAILY 10/19/18 12/27/18 History rOPINIRole HCL [Requip] 0.5 mg PO HS 10/19/18 12/27/18 History Cephalexin [Keflex] 500 mg PO Q6HR 7 Days #28 cap 12/23/18 12/27/18 Rx Aspirin [Adult Low Dose Aspirin EC] 81 mg PO BID 12/26/18 12/27/18 History Allergies Allergy/AdvReac Type Severity Reaction Status Date / Time Sulfa (Sulfonamide Allergy Rash/Hives Verified 12/27/18 11:22 Antibiotics) Physical Exam Vitals: Vital Signs Temp Pulse Pulse Resp BP BP Pulse Ox 12/27/18 21:27 98.0 F 85 16 127/74 97 12/27/18 17:20 97.9 F 79 17 128/71 97 12/27/18 16:00 98.2 F 91 18 111/65 97 12/27/18 13:05 69 16 136/74 97 12/27/18 11:02 98.3 F 107 H 18 100/63 97 Intake and Output 12/27/18 12/27/18 12/27/18 06:59 14:59 22:59 Other: Weight 53.524 kg Results CBC & Chem 7: 12/27/18 11:33 12/27/18 11:33 Labs: Abnormal Lab Results - Last 24 Hours (Table) 12/27/18 12/27/18 12/27/18 Range/Units 11:33 11:33 12:50 WBC 11.1 H (3.8-10.6) k/uL Hgb 11.1 L (11.4-16.0) gm/dL Neutrophils # 9.0 H (1.3-7.7) k/uL Lymphocytes # 0.9 L (1.0-4.8) k/uL Sodium 133 L (137-145) mmol/L BUN 19 H (7-17) mg/dL Glucose 117 H (74-99) mg/dL Albumin 3.4 L (3.5-5.0) g/dL Urine Protein 1+ H (Negative) Urine Blood Small H (Negative) Ur Leukocyte Esterase Small H (Negative) Urine RBC 14 H (0-5) /hpf Urine WBC 15 H (0-5) /hpf Calcium Oxalate Crystal Rare H (None) /hpf Hyaline Casts 33 H (0-2) /lpf Urine Mucus Moderate H (None) /hpf Microbiology - Last 24 Hours (Table) 12/27/18 12:50 Urine Culture - Preliminary Urine,Voided Thrombosis Risk Factor Assmnt - Choose All That Apply Any of the Below Risk Factors Present?: Yes Other Risk Factors: Yes Each Risk Factor Represents 3 Points: Age 75 years or older Other congenital or acquired thrombophilia - If yes, enter type in comment: No Thrombosis Risk Factor Assessment Total Risk Factor Score: 3 Thrombosis Risk Factor Assessment Level: Moderate Risk
[2018-12-28] MEDS: ACETAMINOPHEN TAB 325 MG TAB PO PRN ×3 (03:52→20:52)
--- NOTE | 2018-12-28 11:02 | P.CONS ---
History of Present Illness - Reason for Consult Consult date: 12/28/18 Ascites abdominal pain Requesting physician: Dago Jeter - Chief Complaint Abdominal pain - History of Present Illness 83-year-old female with a past medical history of colonic diverticulosis, hip replacement, pessary ring, admitted with bilateral lower abdominal pain de creased appetite and unintentional 10 pound weight loss for last 3-4 weeks. Denies fever chills hematemesis hematochezia vaginal bleeding hematuria or melena. Intermittent episodes of nonbloody diarrhea. Colonoscopy 2016 evaluation for change in bowel habits diarrhea reported a normal-appearing c olons scattered sigmoid diverticulosis. No recent EGD. Denies odynophagia dysphagia. Additionally she reports a swelling to the right side of her neck that was biopsied recently as well as new development of a palpable nodularity to the left axilla. 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 Cytology pending. CT abdomen and pelvis mild to moderate abdominal pelvic ascites smooth enhancing peritoneum and the pelvis which may be seen with peritonitis however additional findings of retroperitoneal lymphadenopathy measuring up to 2.8 cm dense omental caking in the lower abdomen with left upper quadrant and left mid abdominal peritoneal deposits measuring up to 3.1 cm. 2.4 cm right. Cardiac lymph node and some right basilar pulmonary nodules measuring up to 7 mm findings suggestive metastatic disease. Mild to moderate stool burden. Left-sided colonic diverticulosis. No history of known liver disease. No history of alcoholism. LFTs within normal limits. Lipase 101. White count 11.1. Hemoglobin 11.1. Platelets 315. Review of Systems Constitutional: Denies fever, chills, sweats, unintentional weight loss. HEENT: Negative for migraines, blurred vision or loss, earaches, drainage, tinnitus, oral mucosal lesions, dysphagia, or odynophagia. CARDIAC: Negative for chest pain, arrhythmias, or palpitation. RESPIRATORY: Negative for shortness of breath, hemoptysis, cough, or sputum production. GI: See HPI for pertinent findings. : Negative for hematuria, urgency, frequency, polyuria, or dysuria. GYNc: Negative vaginal discharge. MUSCULOSKELETAL: Negative for muscle aches, swelling, arthritis, and arthralgias. NEUROLOGIC: Negative for stroke or TIA. ENDOCRINE: Negative for thyroid problems. SKIN: Negative for rash or itching. PSYCHIATRIC: Negative history for depression and anxiety Past Medical History Past Medical History: Eye Disorder, GERD/Reflux, Osteoarthritis (OA), Thyroid Disorder Additional Past Medical History / Comment(s): Pt states she recently discovered R neck lump and had FNA/bx on 12/26/18-she states she also just discovered a small lump in L axillae, recent removal of bladder pessary, current UTI, past UTIs, diverticulosis, frequent diarrhea, hypothyroid, bilateral macular degeneration, sinus problems History of Any Multi-Drug Resistant Organisms: None Reported Past Surgical History: Adenoidectomy, Joint Replacement, Orthopedic Surgery, Tonsillectomy, Tubal Ligation Additional Past Surgical History / Comment(s): 12/26/18 FNA R neck mass, 10/30/18 total L hip arthroplasty, R hip arthroplasty, bilateral cataract removals/lens implants, R eye laser surgery to repair macula hole, colonoscopies. Past Anesthesia/Blood Transfusion Reactions: Previous Problems w/ Anesthesia, Family History of Problems w/ Anesthesia Additional Past Anesthesia/Blood Transfusion Reaction / Comm: "i did not go to sleep right away with cataract procedure", brother -hard time waking up Smoking Status: Former smoker - Past Family History Mother Family Medical History: Cancer Additional Family Medical History / Comment(s): Mother first had uterine cancer then lung cancer. Brother(s) Family Medical History: Cancer Additional Family Medical History / Comment(s): Bladder cancer. Father Family Medical History: No Reported History Additional Family Medical History / Comment(s): Father was healthy. Medications and Allergies Home Medications Medication Instructions Recorded Confirmed Type Levothyroxine Sodium [Synthroid] 88 mcg PO DAILY 10/19/18 12/27/18 History rOPINIRole HCL [Requip] 0.5 mg PO HS 10/19/18 12/27/18 History Cephalexin [Keflex] 500 mg PO Q6HR 7 Days #28 cap 12/23/18 12/27/18 Rx Aspirin [Adult Low Dose Aspirin EC] 81 mg PO BID 12/26/18 12/27/18 History Allergies Allergy/AdvReac Type Severity Reaction Status Date / Time Sulfa (Sulfonamide Allergy Rash/Hives Verified 12/27/18 11:22 Antibiotics) Physical Exam Vitals: Vital Signs Temp Pulse Pulse Resp BP BP Pulse Ox 12/28/18 06:00 97.4 F L 77 16 124/60 94 L 12/27/18 21:27 98.0 F 85 16 127/74 97 12/27/18 17:20 97.9 F 79 17 128/71 97 12/27/18 16:00 98.2 F 91 18 111/65 97 12/27/18 13:05 69 16 136/74 97 12/27/18 11:02 98.3 F 107 H 18 100/63 97 Intake and Output 12/27/18 12/28/18 12/28/18 22:59 06:59 14:59 Intake Total 590 Balance 590 Intake: Oral 590 Other: Voiding Method Toilet # Voids 2 2 General appearance: The patient is alert, oriented, in no acute distress. HET: Head is normocephalic and atraumatic. Pupils are equal and reactive. Oropharynx is clear without lesions. Neck: No palpable masses. Trachea midline. Heart: S1 S2. Regular rate and rhythm. Lungs: No crackles or wheezes are heard. Abdomen: Soft, tenderness to the bilateral lower abdomen, nondistended with bowel sounds. Mild ascites. No peritoneal signs. No palpable organomegaly or masses. Extremities: Left axillary pea-sized palpable mass. Normal skin color and turgor. No cyanosis, rash, ulceration, clubbing, or edema. Radial and pedal pulses are 2/4 bilaterally. Neurological: No focal deficits. Strength and sensation are grossly intact. Results CBC & Chem 7: 12/27/18 11:33 12/27/18 11:33 Labs: Abnormal Lab Results - Last 24 Hours (Table) 12/27/18 12/27/18 12/27/18 Range/Units 11:33 11:33 12:50 WBC 11.1 H (3.8-10.6) k/uL Hgb 11.1 L (11.4-16.0) gm/dL Neutrophils # 9.0 H (1.3-7.7) k/uL Lymphocytes # 0.9 L (1.0-4.8) k/uL Sodium 133 L (137-145) mmol/L BUN 19 H (7-17) mg/dL Glucose 117 H (74-99) mg/dL Albumin 3.4 L (3.5-5.0) g/dL Urine Protein 1+ H (Negative) Urine Blood Small H (Negative) Ur Leukocyte Esterase Small H (Negative) Urine RBC 14 H (0-5) /hpf Urine WBC 15 H (0-5) /hpf Calcium Oxalate Crystal Rare H (None) /hpf Hyaline Casts 33 H (0-2) /lpf Urine Mucus Moderate H (None) /hpf Microbiology - Last 24 Hours (Table) 12/27/18 12:50 Urine Culture - Preliminary Urine,Voided CT scan - abdomen: report reviewed (Dr. Quach) Assessment and Plan (1) Abdominal pain Narrative/Plan: 83-year-old female presents with three-week history of unintentional weight loss decreased appetite lower abdominal pain without fever chills bleeding. CT reports peritoneal deposits omental caking suggestive of metastatic disease. Recent ultrasonic reported vascular mass status post biopsy aspiration results are pending. Current Visit: Yes Status: Acute Code(s): R10.9 - UNSPECIFIED ABDOMINAL PAIN SNOMED Code(s): 71558761 (2) Abnormal CT of the abdomen Current Visit: Yes Status: Acute Code(s): R93.5 - ABN FINDINGS ON DX IMAGING OF ABD REGIONS, INC RETROPERITON SNOMED Code(s): 31976377915498700 (3) Unintentional weight loss Current Visit: Yes Status: Acute Code(s): R63.4 - ABNORMAL WEIGHT LOSS SNOMED Code(s): 216587890 (4) Ascites Current Visit: Yes Status: Acute Code(s): R18.8 - OTHER ASCITES SNOMED Code(s): 906571748 Plan: 1. Case was discussed with Dr. Jeter he recommends [facility] consultation as well as oncology. From a GI standpoint clinically no evidence to suggest underlying liver disease. Suspect ascites is secondary to underlying malignant process. Patient may benefit from diagnostic paracentesis will discuss with oncology. Continue with symptomatic supportive measures. Will follow closely with you. Thank you for this kind referral and the opportunity to participate in the care of your patient. This consultation was discussed with Dr. Quach. The impression and plan of care have been directed as dictated.
[2018-12-28] MEDS: CEPHALEXIN 500 MG CAP PO SCH ×3 (12:50→21:57)
--- NOTE | 2018-12-28 12:54 | P.OBCN ---
History of Present Illness Consult date: 12/28/18 Reason for consult: pelvic mass (ascites, omental caking and peritoneal mass with lymphadenopathy) Chief complaint: abdominal pain History of present illness: 83-year-old G0 presented to the ER with abdominal/pelvic pain with increased urination and diarrhea. She was diagnosed with a UTI and sent home on Keflex. The keflex helped with the pain and the diarrhea. A few days later, she came back to the hospital for a minor procedure to aspirate a cyst on her clavicular area. She was admitted when the findings on CT were noted. The findings were reviewed and are highly suspicious for malignancy. The results of the cyst aspiration are still pending. She says that since she has been in the hospital, she has not had her keflex. The urine culture was negative but she was clinically better. I will restart her keflex. I am aware that the ER physician removed her pessary as it was increasing her discomfort. Oncology is also on the case and will see the patient soon. Review of Systems All systems: negative Constitutional: Denies chills, Denies fever Eyes: denies blurred vision, denies pain Ears, nose, mouth and throat: Denies headache, Denies sore throat Cardiovascular: Denies chest pain, Denies shortness of breath Respiratory: Denies cough Gastrointestinal: Reports abdominal pain, Reports change in bowel habits, R eports diarrhea (that appears yellow), Reports heartburn, Reports nausea, Denies vomiting Genitourinary: Reports dysuria (a great deal of internal pain, no burning), Denies hematuria Menstruation: Reports postmenopausal Musculoskeletal: Denies myalgias Integumentary: Denies pruritus, Denies rash Neurological: Denies numbness, Denies weakness Psychiatric: Denies anxiety, Denies depression Endocrine: Reports weight change, Denies fatigue Past Medical History Past Medical History: Eye Disorder, GERD/Reflux, Osteoarthritis (OA), Thyroid Disorder Additional Past Medical History / Comment(s): Pt states she recently discovered R neck lump and had FNA/bx on 12/26/18-she states she also just discovered a small lump in L axillae, recent removal of bladder pessary, current UTI, past UTIs, diverticulosis, frequent diarrhea, hypothyroid, bilateral macular degene ration, sinus problems History of Any Multi-Drug Resistant Organisms: None Reported Past Surgical History: Adenoidectomy, Joint Replacement, Orthopedic Surgery, Tonsillectomy, Tubal Ligation Additional Past Surgical History / Comment(s): 12/26/18 FNA R neck mass, 10/30/18 total L hip arthroplasty, R hip arthroplasty, bilateral cataract removals/lens implants, R eye laser surgery to repair macula hole, colonoscopies. Past Anesthesia/Blood Transfusion Reactions: Previous Problems w/ Anesthesia, Family History of Problems w/ Anesthesia Additional Past Anesthesia/Blood Transfusion Reaction / Comm: "i did not go to sleep right away with cataract procedure", brother -hard time waking up Past Psychological History: No Psychological Hx Reported Smoking Status: Former smoker Past Alcohol Use History: None Reported Past Drug Use History: None Reported - Past Family History Mother Family Medical History: Cancer Additional Family Medical History / Comment(s): Mother first had uterine cancer then lung cancer. Brother(s) Family Medical History: Cancer Additional Family Medical History / Comment(s): Bladder cancer. Father Family Medical History: No Reported History Additional Family Medical History / Comment(s): Father was healthy. Medications and Allergies Home Medications Medication Instructions Recorded Confirmed Type Levothyroxine Sodium [Synthroid] 88 mcg PO DAILY 10/19/18 12/27/18 History rOPINIRole HCL [Requip] 0.5 mg PO HS 10/19/18 12/27/18 History Cephalexin [Keflex] 500 mg PO Q6HR 7 Days #28 cap 12/23/18 12/27/18 Rx Aspirin [Adult Low Dose Aspirin EC] 81 mg PO BID 12/26/18 12/27/18 History Allergies Allergy/AdvReac Type Severity Reaction Status Date / Time Sulfa (Sulfonamide Allergy Rash/Hives Verified 12/27/18 11:22 Antibiotics) Exam Osteopathic Statement: *. No significant issues noted on an osteopathic structural exam other than those noted in the History and Physical/Consult. Vital Signs Temp Pulse Pulse Resp BP BP Pulse Ox 12/28/18 11:35 98.2 F 81 16 129/67 95 12/28/18 06:00 97.4 F L 77 16 124/60 94 L 12/27/18 21:27 98.0 F 85 16 127/74 97 12/27/18 17:20 97.9 F 79 17 128/71 97 12/27/18 16:00 98.2 F 91 18 111/65 97 12/27/18 13:05 69 16 136/74 97 Intake and Output 12/27/18 12/28/18 12/28/18 22:59 06:59 14:59 Intake Total 590 Balance 590 Intake: Oral 590 Other: Voiding Method Toilet # Voids 2 2 HEart: RRR Lungs: CTAB ABdomen: soft, tender with deep palpation in the left lower quadrant. She is sparkle her abdominal muscles and the exam is limited. Extremeties: neg alfonzo's Results Result Diagrams: 12/27/18 11:33 12/27/18 11:33 Abnormal Lab Results - Last 24 Hours (Table) 12/27/18 Range/Units 12:50 Urine Protein 1+ H (Negative) Urine Blood Small H (Negative) Ur Leukocyte Esterase Small H (Negative) Urine RBC 14 H (0-5) /hpf Urine WBC 15 H (0-5) /hpf Calcium Oxalate Crystal Rare H (None) /hpf Hyaline Casts 33 H (0-2) /lpf Urine Mucus Moderate H (None) /hpf Microbiology - Last 24 Hours (Table) 12/27/18 12:50 Urine Culture - Preliminary Urine,Voided Assessment and Plan (1) Abnormal CT of the abdomen Current Visit: Yes Status: Acute Code(s): R93.5 - ABN FINDINGS ON DX IMAGING OF ABD REGIONS, INC RETROPERITON SNOMED Code(s): 03220882884664272 (2) Ascites Current Visit: Yes Status: Acute Code(s): R18.8 - OTHER ASCITES SNOMED Code(s): 983424650 (3) Abdominal pain Current Visit: Yes Status: Acute Code(s): R10.9 - UNSPECIFIED ABDOMINAL PAIN SNOMED Code(s): 56542447 (4) Metastatic cancer Current Visit: Yes Status: Acute Code(s): C79.9 - SECONDARY MALIGNANT NEOPLASM OF UNSPECIFIED SITE SNOMED Code(s): 432496051 (5) Vaginal prolapse Current Visit: Yes Status: Acute Code(s): N81.10 - CYSTOCELE, UNSPECIFIED SNOMED Code(s): 886503424 Plan: 1. I did order keflex 2. likely will need to aspirate some of the ascites to accurately diagnose the malignancy 3. I had a long conversation with Sabrina about the findings of her CT. I explained the ascites, the omental caking and the peritoneal masses. I advised her that this is cancer and we are determining which type but could be ovarian in nature. She understood and asked appropriate questions. I will see her again tomorrow.
--- NOTE | 2018-12-28 13:44 | P.PN ---
Progress Note - Text Progress Note Date: 12/28/18 Chief Complaint: Abdominal pain Interval history: This is a pleasant 83-year-old patient of Dr. Rajinder Diaz. Patient has a long- standing bladder uterine prolapse. For which she's had a pessary. Every time she has to get it taken out and really hurts a lot and often times bleeds. She came to the ER about 10 days ago as it was hurting her a lot. The ER physician to get out. Also given some antibiotic. She was doing fine. States that when she started having increasing lower abdominal pain. She noticed that every time she would could've the bathroom urine would pour out. Also she had some diarrhea the last few days. No nausea vomiting. No fever no chills. She was told to return to the ER has lower abdominal pain does not improve. Hence she is here. Chronic stable medical conditions include GERD, osteoarthritis, hypothyroid, scitica, macular degeneration Today-laying in bed. Awake. Highly suspicious that she is underlying malignancy. Patient was seen earlier by GI and SENIOR UNDERWRITER. Review of systems: Was done for constitutional, cardiovascular, GI, pulmonary. relevant finding as above Active Medications Acetaminophen (Tylenol Tab) 650 mg PO Q6HR PRN PRN Reason: Mild Pain or Fever > 100.5 Last Admin: 12/28/18 12:51 Dose: 650 mg Documented by: Hydrocodone Bitart/Acetaminophen (Lilburn 5-325) 1 each PO Q4HR PRN PRN Reason: Moderate Pain Last Admin: 12/27/18 19:21 Dose: 1 each Documented by: Cephalexin (Keflex) 500 mg PO QID [facility] Last Admin: 12/28/18 12:50 Dose: 500 mg Documented by: Sodium Chloride (Saline 0.9%) 1,000 mls @ 75 mls/hr IV .[id number] [facility] Last Admin: 12/27/18 16:23 Dose: 75 mls/hr Documented by: Naloxone HCl (Narcan) 0.2 mg IV Q2M PRN PRN Reason: Opioid Reversal Ondansetron HCl (Zofran) 4 mg IVP Q8HR PRN PRN Reason: Nausea And Vomiting Last Admin: 12/27/18 19:56 Dose: 4 mg Documented by: Physical examination: VITAL SIGNS: 97.4, 77, 16, 124/60, 94% room air GENERAL: Sitting up in bed, a bit anxious. EYES: Pupils equal. Conjunctiva normal. HEENT: External appearance of nose and ears normal, oral cavity grossly normal. NECK: JVD not raised; masses not palpable. HEART: First and second heart sounds are normal; no edema. LUNGS: Respiratory rate normal; clear to auscultation. ABDOMEN: Soft, some lower abdominal tenderness, no guarding or rigidity, liver spleen not palpable, no masses palpable. PSYCH: Alert and oriented x3; mood and affect anxiousl. NEUROLOGICAL: Cranial nerves grossly intact; no facial asymmetry, power and sensation grossly intact. INVESTIGATIONS, reviewed in the clinical context: White count 11.1 hemoglobin 11.1 potassium 4.8 creatinine 0.71 Computed tomography scan of the abdomen-shows some ascites and retroperitoneal lymphadenopathy dense omental caking and some right basilar pulmonary nodules Assessment: -This patient presents with lower abdominal pain for last 4-5 days after his pessary was taken out. Patient has some pain before that. Computed tomography scan is showing evidence of what appears to be metastatic disease. -Intra-abdominal caking of the omentum, ascites, lower tenderness, for further workup -GERD -Primary osteoarthritis -Hypothyroid -Chronic urinary incontinence from bladder prolapse -Normocytic anemia cause unknown Plan: Spoke to Kinza. From GI. We will order ascites fluid to be tapped. Continue current medication treatment plan. Oncology was also consulted. Care was discussed with the patient.
--- NOTE | 2018-12-28 14:03 | P.CONS ---
History of Present Illness - Reason for Consult Consult date: 12/28/18 Ascites metastatic cancer Requesting physician: Kinza Dominguez - Chief Complaint Abdominal pain Review of Systems 14 point review of systems was assessed and completed in all negative except for HPI Past Medical History Past Medical History: Eye Disorder, GERD/Reflux, Osteoarthritis (OA), Thyroid Disorder Additional Past Medical History / Comment(s): Pt states she recently discovered R neck lump and had FNA/bx on 12/26/18-she states she also just discovered a small lump in L axillae, recent removal of bladder pessary, current UTI, past UTIs, diverticulosis, frequent diarrhea, hypothyroid, bilateral macular degeneration, sinus problems History of Any Multi-Drug Resistant Organisms: None Reported Past Surgical History: Adenoidectomy, Joint Replacement, Orthopedic Surgery, Tonsillectomy, Tubal Ligation Additional Past Surgical History / Comment(s): 12/26/18 FNA R neck mass, 10/30/18 total L hip arthroplasty, R hip arthroplasty, bilateral cataract removals/lens implants, R eye laser surgery to repair macula hole, colonoscopies. Past Anesthesia/Blood Transfusion Reactions: Previous Problems w/ Anesthesia, Family History of Problems w/ Anesthesia Additional Past Anesthesia/Blood Transfusion Reaction / Comm: "i did not go to sleep right away with cataract procedure", brother -hard time waking up Past Psychological History: No Psychological Hx Reported Smoking Status: Former smoker Past Alcohol Use History: None Reported Past Drug Use History: None Reported - Past Family History Mother Family Medical History: Cancer Additional Family Medical History / Comment(s): Mother first had uterine cancer then lung cancer. Brother(s) Family Medical History: Cancer Additional Family Medical History / Comment(s): Bladder cancer. Father Family Medical History: No Reported History Additional Family Medical History / Comment(s): Father was healthy. Medications and Allergies Home Medications Medication Instructions Recorded Confirmed Type Levothyroxine Sodium [Synthroid] 88 mcg PO DAILY 10/19/18 12/27/18 History rOPINIRole HCL [Requip] 0.5 mg PO HS 10/19/18 12/27/18 History Cephalexin [Keflex] 500 mg PO Q6HR 7 Days #28 cap 12/23/18 12/27/18 Rx Aspirin [Adult Low Dose Aspirin EC] 81 mg PO BID 12/26/18 12/27/18 History Allergies Allergy/AdvReac Type Severity Reaction Status Date / Time Sulfa (Sulfonamide Allergy Rash/Hives Verified 12/27/18 11:22 Antibiotics) Physical Exam Vitals: Vital Signs Temp Pulse Pulse Resp BP BP Pulse Ox 12/28/18 11:35 98.2 F 81 16 129/67 95 12/28/18 06:00 97.4 F L 77 16 124/60 94 L 12/27/18 21:27 98.0 F 85 16 127/74 97 12/27/18 17:20 97.9 F 79 17 128/71 97 12/27/18 16:00 98.2 F 91 18 111/65 97 Intake and Output 12/27/18 12/28/18 12/28/18 22:59 06:59 14:59 Intake Total 590 Balance 590 Intake: Oral 590 Other: Voiding Method Toilet Toilet # Voids 2 2 General: Alert and Oriented x3, No Acute Distress Head: Normocytic, Atraumatic Neck: Supple Mouth: No Lesions, No Thrush Eyes: Non-sclerotic No Palpable cervical, supraclavicular, axillary adenopathy Heart: Regular Rate, Regular Rhythm Lungs: Diminishe bilateral lower lobes, No increased respiratory effort noted Abdomen: Sfirm distended Extremities: No Edema, Equal Strength Neurological: No Focal Defects: No sensory or motor deficits noted Psych: Calm and cooperative Results CBC & Chem 7: 12/27/18 11:33 12/27/18 11:33 Labs: Microbiology - Last 24 Hours (Table) 12/27/18 12:50 Urine Culture - Preliminary Urine,Voided CT scan - abdomen: report reviewed CT scan - pelvis: report reviewed Assessment and Plan Plan: Assessment and Recommendations: Abdominal Ascites, Adenopathy, and Omental Caking: - Concern for underlying metastatic Malignancy - Await Pathology from tissue Biopsy - Ca 125 Pending Will follow up once results are finalized and provide further recs. CT Chest full staging.
[2018-12-28 14:39] LABS: INR 1.1 (<1.2); Prothrombin Time 11.3 sec (9.0-12.0)
--- NOTE | 2018-12-28 16:24 | US ---
EXAMINATION TYPE: US abdomen limited DATE OF EXAM: 12/28/2018 COMPARISON: NONE CLINICAL HISTORY: to assess for fluid pocket. abd distention, mets Scant amount of fluid seen in RUQ and LUQ IMPRESSION: Trace of ascites
--- NOTE | 2018-12-28 17:20 | US ---
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 Assess for mets, no pelvic pain TECHNIQUE: TA/TV. Transabdominal sonographic images of the pelvis were acquired. Transvaginal sono graphic images were medically necessary to better assess the following anatomy: all pelvic structures Date of LMP: 40 years ago EXAM MEASUREMENTS: Uterus: 5.3 x 2.4 x 3.0 cm Endometrial Stripe: 0.9 cm Right Ovary: 4.3 x 3.3 x 3.1 cm Left Ovary: 3.5 x 2.7 x 2.5 cm 1. Uterus: Anteverted heterogeneous 2. Endometrium: thickened 3. Right Ovary: Solid area within rt adnexa, may represent irregular ovary and/or peritoneal stud. C an be delineated with pelvic MR if clinically needed. 4. Left Ovary: 2.8cm cystic area noted, presumed functional ovarian cyst. 5. Cul-de-sac: Peritoneal fluid noted. IMPRESSION: Mild/moderate peritoneal fluid, with question of right peritoneal soft tissue nodule.
[2018-12-28] MEDS: ONDANSETRON 4 MG/2 ML VIAL IVP PRN (17:33)
[2018-12-28] MEDS: SODIUM CHLORIDE 0.9% 1,000 ML IV SCH ×2 (17:34→21:59)
[2018-12-29] MEDS: CEPHALEXIN 500 MG CAP PO SCH ×3 (07:32→17:39)
[2018-12-29] MEDS: ACETAMINOPHEN TAB 325 MG TAB PO PRN (07:32)
[2018-12-29] MEDS: ONDANSETRON 4 MG/2 ML VIAL IVP PRN (08:39)
[2018-12-29] MEDS ORDERED: RX INFO: IV CONTRAST WAS GIVEN 1 EACH MISC MISCELLANE PRN (09:16)
--- NOTE | 2018-12-29 09:20 | P.PN ---
Subjective Progress Note Date: 12/29/18 Principal diagnosis: New Ovarian Cancer Appears patient has new metastaic ovarian cancer. path positive adenocarcinoma. Reviewed transvaginal ultrasound Objective - Vital Signs Vital signs: Vital Signs Temp 98.3 F 12/29/18 04:50 Pulse 83 12/29/18 04:50 Resp 16 12/29/18 04:50 BP 115/62 12/29/18 04:50 Pulse Ox 94 L 12/29/18 04:50 Intake & Output 12/28/18 12/29/18 12/29/18 18:59 06:59 18:59 Intake Total 1190 Balance 1190 Weight 53.524 kg Intake: Intake, IV Titration 600 Amount Sodium Chloride 0.9% 1, 600 000 ml @ 75 mls/hr IV . [id number] YANIQUE Rx#:[id number] Oral 590 Other: Voiding Method Toilet Toilet # Voids 650 2 - Labs CBC & Chem 7: 12/27/18 11:33 12/27/18 11:33 Labs: Abnormal Lab Results - Last 24 Hours (Table) 12/28/18 Range/Units 14:12 CA 125 Antigen 4971.6 H (0.0-30.1) U/mL Microbiology - Last 24 Hours (Table) 12/27/18 12:50 Urine Culture - Preliminary Urine,Voided Group D Enterococcus Assessment and Plan Plan: Assessment and Recommendations: Abdominal Ascites, Adenopathy, and Omental Caking: - Concern for underlying metastatic Malignancy - Await Pathology from tissue Biopsy - Ca 125 elevated Will follow up once results are finalized and provide further recs. CT Chest full staging. Olivia: - Paracentesis Therapeutic and Diagnostic - Discussion related allison-adjuvant treatment with patient and if family mariana gaspar
[2018-12-29] MEDS: SODIUM CHLORIDE 0.9% 1,000 ML IV SCH (10:25)
--- NOTE | 2018-12-29 10:33 | P.PN ---
Progress Note - Text Progress Note Date: 12/29/18 PT seen and examined at bedside today. Pelvic US reviewed-there is a 2.8cm simple cyst on one ovary and slightly thickened endometrium. She is not short of breath or in any pain at this time. She does still have an aching pain with urination. We reviewed her likely diagnosis though path is not back yet. HEr CA-125 is >4,000. THis can be elevated in ascites and lung disease but with the peritoneal masses it is likely either primary peritoneal or ovarian. SHe is still ambulating and voiding, tolerating reg diet.
[2018-12-29 11:04] LABS: Basophils # (A) 0.1 k/uL (0-0.2); Basophils % (A) 1 %; Eosinophils # (A) 0.1 k/uL (0-0.7); Eosinophils % (A) 1 %; HCT 32.5 % (34.0-46.0); HGB 9.8 gm/dL (11.4-16.0); Hypochromasia Slight; Lymphocytes # (A) 0.6 k/uL (1.0-4.8); Lymphocytes % (A) 6 %; MCH 27.2 pg (25.0-35.0); MCHC 30.3 g/dL (31.0-37.0); MCV 89.9 fL (80.0-100.0); Mean Platelet Volume 7.1; Monocytes # (A) 0.6 k/uL (0-1.0); Monocytes % (A) 6 %; Neutrophils % (A) 85 %; Platelet Count 253 k/uL (150-450); RBC 3.61 m/uL (3.80-5.40); RDW 13.1 % (11.5-15.5); WBC 9.3 k/uL (3.8-10.6)
[2018-12-29 11:15] LABS: African American GFR (CKD) >90 (>60 ml/min/1.73 sqM); Anion Gap 10 mmol/L; Blood Urea Nitrogen 13 mg/dL (7-17); Carbon Dioxide 25 mmol/L (22-30); Chloride 101 mmol/L (98-107); Glucose 133 mg/dL (74-99); Potassium 4.1 mmol/L (3.5-5.1); Sodium 136 mmol/L (137-145)
[2018-12-29 11:51] VITALS: BP 122/66; PULSE 82; TEMP 98.1
--- NOTE | 2018-12-29 13:19 | P.PN ---
Subjective Progress Note Date: 12/29/18 Principal diagnosis: Abdominal pain ascites CT neck chest ordered. CEA 125 antigen 4971. Diagnostic paracentesis not attempted secondary to lack of fluid. Objective - Vital Signs Vital signs: Vital Signs Temp 98.1 F 12/29/18 11:40 Pulse 82 12/29/18 11:40 Resp 16 12/29/18 11:40 BP 122/66 12/29/18 11:40 Pulse Ox 91 L 12/29/18 11:40 Intake & Output 12/28/18 12/29/18 12/29/18 18:59 06:59 18:59 Intake Total 1190 Balance 1190 Weight 53.524 kg Intake: Intake, IV Titration 600 Amount Sodium Chloride 0.9% 1, 600 000 ml @ 75 mls/hr IV . [id number] YANIQUE Rx#:[id number] Oral 590 Other: Voiding Method Toilet Toilet Toilet # Voids 650 2 2 - Exam General appearance: The patient is alert, oriented, in no acute distress. HET: Head is normocephalic and atraumatic. Pupils are equal and reactive. Oropharynx is clear without lesions. Neck: Supple without lymphadenopathy. Trachea midline. Heart: S1 S2. Regular rate and rhythm. Lungs: No crackles or wheezes are heard. Abdomen: Soft, mild tenderness to the bilateral lower abdomen, nondistended with bowel sounds. No peritoneal signs. No palpable organomegaly or masses. Extremities: Normal skin color and turgor. No cyanosis, rash, ulceration, clubbing, or edema. Radial and pedal pulses are 2/4 bilaterally. Neurological: No focal deficits. Strength and sensation are grossly intact. - Labs CBC & Chem 7: 12/29/18 10:28 12/29/18 10:28 Labs: Abnormal Lab Results - Last 24 Hours (Table) 12/28/18 12/29/18 12/29/18 Range/Units 14:12 10:28 10:28 RBC 3.61 L (3.80-5.40) m/uL Hgb 9.8 L (11.4-16.0) gm/dL Hct 32.5 L (34.0-46.0) % MCHC 30.3 L (31.0-37.0) g/dL Neutrophils # 8.0 H (1.3-7.7) k/uL Lymphocytes # 0.6 L (1.0-4.8) k/uL Sodium 136 L (137-145) mmol/L Glucose 133 H (74-99) mg/dL Calcium 8.0 L (8.4-10.2) mg/dL CA 125 Antigen 4971.6 H (0.0-30.1) U/mL Microbiology - Last 24 Hours (Table) 12/27/18 12:50 Urine Culture - Preliminary Urine,Voided Group D Enterococcus Assessment and Plan (1) Abdominal pain Narrative/Plan: 83-year-old female presents with three-week history of unintentional weight loss decreased appetite lower abdominal pain without fever chills bleeding. CT reports peritoneal deposits omental caking suggestive of metastatic disease. Recent ultrasonic reported vascular mass status post biopsy aspiration results are pending. Current Visit: Yes Status: Acute Code(s): R10.9 - UNSPECIFIED ABDOMINAL PAIN SNOMED Code(s): 22361212 (2) Abnormal CT of the abdomen Current Visit: Yes Status: Acute Code(s): R93.5 - ABN FINDINGS ON DX IMAGING OF ABD REGIONS, INC RETROPERITON SNOMED Code(s): 82632215391932685 (3) Unintentional weight loss Current Visit: Yes Status: Acute Code(s): R63.4 - ABNORMAL WEIGHT LOSS SNOMED Code(s): 506953702 (4) Ascites Current Visit: Yes Status: Acute Code(s): R18.8 - OTHER ASCITES SNOMED Code(s): 386149177 (5) Elevated CA-125 Current Visit: Yes Status: Acute Code(s): R97.1 - ELEVATED CANCER ANTIGEN 125 [CA 125] SNOMED Code(s): 814522125 Plan: 1. No further workup from a GI standpoint. We'll defer to oncology JAVA SWING DEVELOPER for further recommendations. Discharge per medicine consultants. Assessment and plan a care discussed with Dr. Quach
--- NOTE | 2018-12-29 13:41 | CT ---
EXAMINATION TYPE: CT neck chest w con DATE OF EXAM: 12/29/2018 1:20 PM COMPARISON: None HISTORY: Cancer initial staging CT DLP: 686 mGycm Automated exposure control for dose reduction was used. CONTRAST: CT scan of the neck and chest is performed following with IV Contrast, patient injected with 100 mL o f Isovue 300. Axial images are obtained, coronal and sagittal reformatted images are reviewed. FINDINGS: Airway: No gross abnormality seen. Within the left upper lobe, axial image 27 there is a soft tissue nodule measuring 5 mm. Some smaller nodular densities are also present in the left upper lobe. There is basilar atelectasis. Minimal pleural effusions are present. Parotid/submandibular glands: No gross abnormality seen. Carotid/Vascular Structures: Unremarkable Osseous Structures: Sclerotic focus is present at T1 which is suspicious, degenerative disc changes a re present in the visualized apical spine. Other: No evident neck adenopathy. In the supraclavicular region on the left there is a subcentimeter node, short axis node measures 7 mm, on the right in the supraclavicular region there is a low dense node measuring 13 mm in short axis, additional node is present measuring 19 mm in short axis. Superi or mediastinal adenopathy, retrocaval pretracheal adenopathy, subcarinal adenopathy and prevascular a denopathy, aorticopulmonary window nodes are present. IMPRESSION: Adenopathy as described. Possible bone metastatic disease. Bone scan may be of benefit. P leural effusions.
[2018-12-30 01:17] LABS: Iron Saturation 4.15 (12.00-45.00)
--- NOTE | 2018-12-30 16:30 | P.DS ---
Providers Date of admission: 12/27/18 15:05 Expected date of discharge: 12/29/18 Attending physician: Dago Jeter Consults: 12/27/18 14:32 Consult Physician Urgent Consulting Provider: Ronnie Ledesma Consult Reason/Comments: Ascites, metastatic cancer Do you want consulting provider notified?: Yes 12/28/18 10:52 Consult Physician Routine Consulting Provider: Yulisa Jones Consult Reason/Comments: possible [employer] malignancy abdnormal CT A/P known to you Do you want consulting provider notified?: Yes Primary care physician: [facility] Course: Hospital course: This is a pleasant 83-year-old patient of Dr. Rajinder Diaz. Patient has a long- standing bladder uterine prolapse. For which she's had a pessary. Every time she has to get it taken out and really hurts a lot and often times bleeds. She came to the ER about 10 days ago as it was hurting her a lot. The ER physician to get out. Also given some antibiotic. She was doing fine. States that when she started having increasing lower abdominal pain. She noticed that every time she would could've the bathroom urine would pour out. Also she had some diarrhea the last few days. No nausea vomiting. No fever no chills. She was told to return to the ER has lower abdominal pain does not improve. Hence she is here. Chronic stable medical conditions include GERD, osteoarthritis, hypothyroid, scitica, macular degeneration Radiological studies: Computed tomography scan of the abdomen and pelvis-shows ascites, retroperitoneal lymphadenopathy and dense omental caking, some pulmonary nodules. Abdominal ultrasound showed trace ascites. Pelvic ultrasound shows irregular right ovary some peritoneal fluid. Neck and brain CT shows suggestive bone metastatic disease and lymphadenopathy. Plan was to let the patient go home per oncology. She'll be followed as an outpatient. Patient is keen to go home. Consultants: Dr. Bella Quach from GI Dr. Cuevas from oncology Dr. Jones from [employer] Physical examination: VITAL SIGNS: 98.1, 82, 16, 1 22 x 6 6, 91% room air GENERAL: Sitting up in bed, a bit anxious. EYES: Pupils equal. Conjunctiva normal. HEENT: External appearance of nose and ears normal, oral cavity grossly normal. NECK: JVD not raised; masses not palpable. HEART: First and second heart sounds are normal; no edema. LUNGS: Respiratory rate normal; clear to auscultation. ABDOMEN: Soft, some lower abdominal tenderness, no guarding or rigidity, liver spleen not palpable, no masses palpable. PSYCH: Alert and oriented x3; mood and affect anxiousl. INVESTIGATIONS, reviewed in the clinical context: White count 11.1 hemoglobin 11.1 potassium 4.8 creatinine 0.71 Radiological studies as above Discharge diagnosis: -This patient presents with lower abdominal pain for last 4-5 days after his pessary was taken out. Patient has some pain before that. Computed tomography scan is showing evidence of what appears to be metastatic disease. -Intra-abdominal caking of the omentum, ascites, lower tenderness, for further workup, as outpatient -GERD -Primary osteoarthritis -Hypothyroid -Chronic urinary incontinence from bladder prolapse -Normocytic anemia cause unknown Disposition: Home Patient Condition at Discharge: Stable Plan - Discharge Summary Discharge Rx Participant: No New Discharge Prescriptions: No Action rOPINIRole HCL [Requip] 0.5 mg PO HS Levothyroxine Sodium [Synthroid] 88 mcg PO DAILY Cephalexin [Keflex] 500 mg PO Q6HR 7 Days #28 cap Aspirin [Adult Low Dose Aspirin EC] 81 mg PO BID Discharge Medication List Levothyroxine Sodium [Synthroid] 88 mcg PO DAILY 10/19/18 [History] rOPINIRole HCL [Requip] 0.5 mg PO HS 10/19/18 [History] Cephalexin [Keflex] 500 mg PO Q6HR 7 Days #28 cap 12/23/18 [Rx] Aspirin [Adult Low Dose Aspirin EC] 81 mg PO BID 12/26/18 [History] Follow up Appointment(s)/Referral(s): Fredy Cuevas MD [STAFF PHYSICIAN] - 1 Week Yulisa Jones DO [Doctor of Osteopathic Medicine] - 1 Week Rajinder Travis MD [Primary Care Provider] - 1-2 days Patient Instructions/Handouts: Ascites (DC)
== END 2018-12-29 19:38 | disposition home or self-care (01) | DRG 755 ==
LOC: EC 10:53 → 3NMEDONC 15:05
PROVIDERS: ADMIT Hospitalist; ATTEND Hospitalist
PROC: 0JB43ZX Excision of Right Neck Subcutaneous Tissue and Fascia, Percutaneous Approach, Diagnostic (ICD-10-PCS; principal; 2018-12-26)
DX: C56.9 Malignant neoplasm of unspecified ovary (principal); N39.0 Urinary tract infection, site not specified; C78.6 Secondary malignant neoplasm of retroperitoneum and peritoneum; R18.8 Other ascites; N81.4 Uterovaginal prolapse, unspecified; D64.9 Anemia, unspecified; K21.9 Gastro-esophageal reflux disease without esophagitis; M19.91 Primary osteoarthritis, unspecified site; E03.9 Hypothyroidism, unspecified; H35.30 Unspecified macular degeneration; M54.30 Sciatica, unspecified side; N39.498 Other specified urinary incontinence; K57.30 Diverticulosis of large intestine without perforation or abscess without bleeding; R63.4 Abnormal weight loss; Z68.21 Body mass index [BMI] 21.0-21.9, adult; Z79.890 Hormone replacement therapy; Z79.82 Long term (current) use of aspirin; Z79.899 Other long term (current) drug therapy; Z87.891 Personal history of nicotine dependence; Z87.440 Personal history of urinary (tract) infections; Z96.643 Presence of artificial hip joint, bilateral; Z98.51 Tubal ligation status; Z98.42 Cataract extraction status, left eye; Z98.41 Cataract extraction status, right eye; Z96.1 Presence of intraocular lens; Z88.2 Allergy status to sulfonamides; Z80.49 Family history of malignant neoplasm of other genital organs; Z80.1 Family history of malignant neoplasm of trachea, bronchus and lung; Z80.52 Family history of malignant neoplasm of bladder
CPT/HCPCS: 10005; 36415; 70491; 71260; 74177; 76705; 76830; 76856; 80048; 80053; 81001; 82150; 82607; 82728; 83540; 83550; 83605; 83615; 83690; 83921; 85025; 85610; 86304; 87077; 87086; 87186; 88173; 88305; 88341; 96360; 99285

== ENCOUNTER 2019-01-20 11:31 | Emergency (ER) | payer MEDICARE ==
[2019-01-20 11:40] VITALS: TEMP 98.1
[2019-01-20] MEDS ORDERED: SODIUM CHLORIDE 0.9% 500 ML 500 ML IV STA (11:43)
[2019-01-20] MEDS ORDERED: SODIUM CHLORIDE 0.9% 1,000 ML IV STA (11:43)
[2019-01-20] MEDS ORDERED: FAMOTIDINE 20 MG/2 ML VIAL IV STA (11:44)
--- NOTE | 2019-01-20 11:46 | ED ---
GI Bleed HPI - General Chief complaint: GI Bleed Stated complaint: NVD Time Seen by Provider: 01/20/19 11:31 Source: patient, EMS, RN notes reviewed Mode of arrival: EMS Limitations: no limitations - History of Present Illness Initial comments: This 83-year-old female with a history of metastatic ovarian cancer who for the past several days has had nausea vomiting inability keep food or fluids down also she's had coffee-ground emesis. No reports of blood per rectum however. She states she's more bloated than usual. She feels weak no overt dizziness or lightheadedness however. MD complaint: coffee ground emesis - Related Data Home Medications Medication Instructions Recorded Confirmed Levothyroxine Sodium [Synthroid] 88 mcg PO DAILY 10/19/18 01/20/19 rOPINIRole HCL [Requip] 0.5 mg PO HS 10/19/18 01/20/19 Docusate [Colace] 100 mg PO DAILY 01/20/19 01/20/19 Ibuprofen [Motrin] 600 mg PO Q6HR PRN 01/20/19 01/20/19 Megestrol [Megace] 40 mg PO TID 01/20/19 01/20/19 Ondansetron [Zofran] 4 mg PO Q6H PRN 01/20/19 01/20/19 Allergies Allergy/AdvReac Type Severity Reaction Status Date / Time Sulfa (Sulfonamide Allergy Rash/Hives Verified 01/20/19 11:39 Antibiotics) Review of Systems ROS Statement: Those systems with pertinent positive or pertinent negative responses have been documented in the HPI. ROS Other: All systems not noted in ROS Statement are negative. Past Medical History Past Medical History: Cancer, Eye Disorder, GERD/Reflux, Osteoarthritis (OA), Thyroid Disorder Additional Past Medical History / Comment(s): Pt states she recently discovered R neck lump and had FNA/bx on 12/26/18, per chart it is positivemetastatic poorly differentiated carcinoma consistent with primary endometrial vs non mucinous ovarian origin-she states she also just discovered a small lump in L axillae, re cent removal of bladder pessary, current UTI, past UTIs, diverticulosis, frequent diarrhea, hypothyroid, bilateral macular degeneration, sinus problems History of Any Multi-Drug Resistant Organisms: None Reported Past Surgical History: Adenoidectomy, Joint Replacement, Orthopedic Surgery, Tonsillectomy, Tubal Ligation Additional Past Surgical History / Comment(s): 12/26/18 FNA R neck mass, 10/30/18 total L hip arthroplasty, R hip arthroplasty, bilateral cataract removals/lens implants, R eye laser surgery to repair macula hole, colonoscopies. Past Anesthesia/Blood Transfusion Reactions: Previous Problems w/ Anesthesia, Family History of Problems w/ Anesthesia Additional Past Anesthesia/Blood Transfusion Reaction / Comment(s): "i did not go to sleep right away with cataract procedure", brother -hard time waking up Past Psychological History: No Psychological Hx Reported Smoking Status: Former smoker Past Alcohol Use History: None Reported Past Drug Use History: None Reported - Past Family History Mother Family Medical History: Cancer Additional Family Medical History / Comment(s): Mother first had uterine cancer then lung cancer. Brother(s) Family Medical History: Cancer Additional Family Medical History / Comment(s): Bladder cancer. Father Family Medical History: No Reported History Additional Family Medical History / Comment(s): Father was healthy. General Exam - General Exam Comments Initial Comments: This is a well-developed asthenic appearing female who is awake alert oriented 3 Limitations: no limitations General appearance: alert, in no apparent distress Head exam: Present: atraumatic, normocephalic, normal inspection Eye exam: Present: normal appearance, PERRL, EOMI. Absent: scleral icterus, conjunctival injection, periorbital swelling ENT exam: Present: mucous membranes dry Neck exam: Present: normal inspection. Absent: tenderness, meningismus, lymphadenopathy Respiratory exam: Present: normal lung sounds bilaterally. Absent: respiratory distress, wheezes, rales, rhonchi, stridor Cardiovascular Exam: Present: normal rhythm, tachycardia, normal heart sounds. Absent: systolic murmur, diastolic murmur, rubs, gallop, clicks GI/Abdominal exam: Present: soft, distended, normal bowel sounds, other (Increased tympany). Absent: tenderness, guarding, rebound, rigid, bruit, pulsatile mass Rectal exam: Present: normal inspection, heme (+) stool (No gross bleeding seen hem positive brown stool) Extremities exam: Present: normal inspection, full ROM, normal capillary refill, pedal edema (Some edema in the left lower extremity compared to the right no palpable cords no Homans sign). Absent: tenderness, joint swelling, calf tenderness Back exam: Present: normal inspection Neurological exam: Present: alert, oriented X3, CN II-XII intact Psychiatric exam: Present: normal affect, normal mood Skin exam: Present: warm, dry, intact, normal color. Absent: rash Course Vital Signs 01/20/19 01/20/19 01/20/19 11:34 11:36 12:00 Temperature 98.1 F Pulse Rate 103 H Respiratory 18 Rate Blood Pressure 112/68 112/68 112/68 O2 Sat by Pulse 89 L 98 Oximetry 01/20/19 01/20/19 01/20/19 12:30 13:00 13:30 Temperature Pulse Rate Respiratory Rate Blood Pressure 112/68 119/75 110/76 O2 Sat by Pulse 86 L 97 Oximetry Medical Decision Making - Medical Decision Making I did discuss the findings with patient family patient does have a heme positive rectal exam: No gross bleeding was noted. The case was discussed with the patient family due to no GI coverage today the patient will require transfer to an outside facility I did discuss the case with Dr. Lewis at [facility] was agreed to accept the patient transfer. - Lab Data Result diagrams: 01/20/19 12:06 01/20/19 12:06 Lab Results 01/20/19 01/20/19 01/20/19 Range/Units 12:06 12:06 12:06 WBC (3.8-10.6) k/uL RBC (3.80-5.40) m/uL Hgb (11.4-16.0) gm/dL Hct (34.0-46.0) % MCV (80.0-100.0) fL MCH (25.0-35.0) pg MCHC (31.0-37.0) g/dL RDW (11.5-15.5) % Plt Count (150-450) k/uL Neutrophils % % Lymphocytes % % Monocytes % % Eosinophils % % Basophils % % Neutrophils # (1.3-7.7) k/uL Lymphocytes # (1.0-4.8) k/uL Monocytes # (0-1.0) k/uL Eosinophils # (0-0.7) k/uL Basophils # (0-0.2) k/uL Hypochromasia PT 12.6 H (9.0-12.0) sec INR 1.2 H (<1.2) APTT 23.1 (22.0-30.0) sec Sodium 137 (137-145) mmol/L Potassium 4.1 (3.5-5.1) mmol/L Chloride 96 L (98-107) mmol/L Carbon Dioxide 28 (22-30) mmol/L Anion Gap 13 mmol/L BUN 66 H (7-17) mg/dL Creatinine 1.24 H (0.52-1.04) mg/dL Est GFR (CKD-EPI)AfAm 47 (>60 ml/min/1.73 sqM) Est GFR (CKD-EPI)NonAf 41 (>60 ml/min/1.73 sqM) Glucose 120 H (74-99) mg/dL Calcium 8.0 L (8.4-10.2) mg/dL Total Bilirubin 0.6 (0.2-1.3) mg/dL AST 23 (14-36) U/L ALT 19 (9-52) U/L Alkaline Phosphatase 102 (38-126) U/L Creatine Kinase 25 L (30-135) U/L Total Protein 5.8 L (6.3-8.2) g/dL Albumin 2.7 L (3.5-5.0) g/dL Stool Occult Blood (Negative) Blood Type O Positive Blood Type Recheck No Antibody Screen NEGATIVE Spec Expiration Date 01/23/2019230501/20/19 01/20/19 Range/Units 12:06 13:50 WBC 12.2 H (3.8-10.6) k/uL RBC 4.69 (3.80-5.40) m/uL Hgb 12.5 (11.4-16.0) gm/dL Hct 40.4 (34.0-46.0) % MCV 86.0 (80.0-100.0) fL MCH 26.7 (25.0-35.0) pg MCHC 31.0 (31.0-37.0) g/dL RDW 14.5 (11.5-15.5) % Plt Count 168 (150-450) k/uL Neutrophils % 86 % Lymphocytes % 6 % Monocytes % 7 % Eosinophils % 0 % Basophils % 0 % Neutrophils # 10.4 H (1.3-7.7) k/uL Lymphocytes # 0.7 L (1.0-4.8) k/uL Monocytes # 0.9 (0-1.0) k/uL Eosinophils # 0.0 (0-0.7) k/uL Basophils # 0.1 (0-0.2) k/uL Hypochromasia Slight PT (9.0-12.0) sec INR (<1.2) APTT (22.0-30.0) sec Sodium (137-145) mmol/L Potassium (3.5-5.1) mmol/L Chloride (98-107) mmol/L Carbon Dioxide (22-30) mmol/L Anion Gap mmol/L BUN (7-17) mg/dL Creatinine (0.52-1.04) mg/dL Est GFR (CKD-EPI)AfAm (>60 ml/min/1.73 sqM) Est GFR (CKD-EPI)NonAf (>60 ml/min/1.73 sqM) Glucose (74-99) mg/dL Calcium (8.4-10.2) mg/dL Total Bilirubin (0.2-1.3) mg/dL AST (14-36) U/L ALT (9-52) U/L Alkaline Phosphatase (38-126) U/L Creatine Kinase (30-135) U/L Total Protein (6.3-8.2) g/dL Albumin (3.5-5.0) g/dL Stool Occult Blood Positive H (Negative) Blood Type Blood Type Recheck Antibody Screen Spec Expiration Date - EKG Data -: EKG Interpreted by De EKG shows normal: sinus rhythm Rate: tachycardia (Sinus tachycardia rate 102. Interval 116 QRS duration 80 QT since QTC 334/[address]-T wave changes) - Radiology Data Radiology results: report reviewed (I did review the imaging and report no acute findings are seen.), image reviewed Disposition Clinical Impression: Upper GI bleed, Melena, Acute kidney injury, Dehydration Disposition: OTHER INSTITUTION NOT DEFINED Condition: Fair Referrals: Rajinder Travis MD [Primary Care Provider] - 1-2 days - Out of Hospital Transfer - Req. Specs Out of Hospital Transfer - Requested Specifics: Other Emergency Center
[2019-01-20 12:40] LABS: INR 1.2 (<1.2); Partial Thromboplastin Time 23.1 sec (22.0-30.0); Prothrombin Time 12.6 sec (9.0-12.0)
--- NOTE | 2019-01-20 12:43 | XR ---
EXAMINATION TYPE: XR KUB DATE OF EXAM: 01/20/2019 COMPARISON: None INDICATION: Pain TECHNIQUE: Single view abdomen supine view FINDINGS: There is a nonspecific bowel gas pattern. Psoas margins are normal. No organomegaly is present. Bilateral hip prostheses are evident. IMPRESSION: 1. Nonspecific abdomen.
[2019-01-20] MEDS ORDERED: ONDANSETRON 4 MG/2 ML VIAL IVP STA (13:30)
[2019-01-20 13:35] LABS: Albumin 2.7 g/dL (3.5-5.0); Potassium 4.1 mmol/L (3.5-5.1); Total Bilirubin 0.6 mg/dL (0.2-1.3); Total Protein 5.8 g/dL (6.3-8.2)
[2019-01-20 13:44] LABS: Basophils # (A) 0.1 k/uL (0-0.2); Basophils % (A) 0 %; Eosinophils % (A) 0 %; HCT 40.4 % (34.0-46.0); HGB 12.5 gm/dL (11.4-16.0); Hypochromasia Slight; Lymphocytes # (A) 0.7 k/uL (1.0-4.8); Lymphocytes % (A) 6 %; MCH 26.7 pg (25.0-35.0); Mean Platelet Volume 8.3; Monocytes # (A) 0.9 k/uL (0-1.0); Monocytes % (A) 7 %; Neutrophils # (A) 10.4 k/uL (1.3-7.7); Neutrophils % (A) 86 %; Platelet Count 168 k/uL (150-450); RBC 4.69 m/uL (3.80-5.40); RDW 14.5 % (11.5-15.5); WBC 12.2 k/uL (3.8-10.6)
[2019-01-20] MEDS ORDERED: PANTOPRAZOLE 40 MG/10 ML VIAL IVP STA (15:02)
[2019-01-20 15:40] VITALS: PULSE 89; RESP 16
[2019-01-20 16:38] VITALS: BP 107/72
== END 2019-01-20 16:39 | disposition other institution (70) ==
LOC: EC 11:31
DX: K92.1 Melena (principal); N17.9 Acute kidney failure, unspecified; E86.0 Dehydration; R19.7 Diarrhea, unspecified; E03.9 Hypothyroidism, unspecified; M19.90 Unspecified osteoarthritis, unspecified site; Z87.891 Personal history of nicotine dependence; Z96.643 Presence of artificial hip joint, bilateral; Z85.43 Personal history of malignant neoplasm of ovary; Z79.890 Hormone replacement therapy; Z79.899 Other long term (current) drug therapy; Z88.2 Allergy status to sulfonamides; Z53.29 Procedure and treatment not carried out because of patient's decision for other reasons
CPT/HCPCS: 36415; 93005; 86900; 86901; 80053; 82550; 85025; 85610; 85730; 86850; 82272; 74018; 99285; 96374; 96375; 96361 ×4; C9113